=== PATIENT | female | born 1975 | race Caucasian/White ===

== ENCOUNTER 2021-02-13 16:19 | Inpatient (IN) ==
[2021-02-13] MEDS ORDERED: KETOROLAC TROMETHAMINE 15 MG/ML VIAL IV STA (16:52)
[2021-02-13] MEDS ORDERED: DIHYDROERGOTAMINE MESYLATE 1 MG/ML VIAL IV ONE ×2 (16:52→18:37)
[2021-02-13] MEDS ORDERED: PROMETHAZINE 12.5 MG/50.5 ML BAG IV STA (16:52)
[2021-02-13] MEDS ORDERED: diphenhydrAMINE 50 MG/ML VIAL IV STA (16:52)
[2021-02-13] MEDS ORDERED: SODIUM CHLORIDE 0.9% 1000ML 1,000 ML IV SCH (17:00)
--- NOTE | 2021-02-13 17:00 | Emergency Department Note ---
History of Present Illness General Chief complaint: Headache Stated complaint: MIGRAINE Time Seen by Provider: 02/13/21 16:41 Source: patient History of Present Illness Provider complaint: Headache Onset (ago): week(s) Location: head Pain Consistency: + constant Maximum Pain Intensity: 8 Quality: + constant Relieved By: + medication Exacerbated By: + other (Bright lights) Associated symptoms: no chest pain, no cough, no fever/chills, no nausea/vomiting and no shortness of breath This is a 45-year-old female with a longstanding history of migraine headaches presenting with a migraine headache for the past 3 weeks. The pain is on the left side of her head radiating down her face. She currently rates it an 8 out of 10 in severity. It is worse with bright lights. It did get better yesterday when I saw the patient and treated her with multiple medications. The pain came back this morning when she woke up. She did take the Toradol and Depakote that she was prescribed with minimal relief. She attempted to call neurology but was unable to get a call back. So she presents here today with continued headache. She denies any new symptoms today. She denies any fever, vomiting, cough or cold symptoms, chest pain, shortness of breath, abdominal pain, diarrhea, urinary symptoms or numbness or weakness on one side of her body. She does state that she was able to get the results of her MRI that was performed 2 days ago and it was negative per her report. Home Medications Medication Instructions Recorded Confirmed Type cholecalciferol (vitamin D3) 50 2,000 units PO DAILY 12/07/19 02/12/21 History mcg (2,000 unit) tablet famotidine 20 mg tablet 20 mg PO HS 12/12/19 02/12/21 History sertraline 50 mg tablet 75 mg PO DAILY tab 12/12/19 02/12/21 History zolpidem 10 mg tablet 10 mg PO HS tab 12/12/19 02/12/21 History erenumab-aooe 140 mg/mL 140 mg SUBCUT MONTHLY #1 ml 02/07/21 02/12/21 Rx subcutaneous auto-injector nortriptyline 25 mg capsule 25 mg PO DAILY #30 cap 02/07/21 02/12/21 Rx clonazepam 0.5 mg PO BID PRN 02/12/21 02/12/21 History ketorolac 10 mg PO Q8H PRN #10 tab 02/12/21 Rx mecobalamin (vitamin B12) 1,000 mcg PO DAILY 02/12/21 02/12/21 History pantoprazole 40 mg PO DAILY 02/12/21 02/12/21 History sumatriptan [Imitrex] 20 mg INTRANASAL Q6H PRN 02/12/21 02/12/21 History topiramate 25 mg PO HS 02/12/21 02/12/21 History valproic acid 250 mg PO UD #18 cap 02/12/21 Rx Allergies Allergy/AdvReac Type Severity Reaction Status Date / Time metoclopramide [From Reglan] AdvReac Shakiness Verified 02/07/21 08:30 prochlorperazine AdvReac Shakiness Verified 02/07/21 08:30 [From Compazine] Past Med/Surg History Medical History Migraine without aura Pseudoseizures Surgical History No history of previous surgery Family History Mother Migraine headache Grandmother (Maternal) Migraine headache Other Family history non-contributory Social History Smoking Status: Never smoker Preferred Language: Vietnamese marital status: Current Living Situation: Family current occupational status: employed Feels Safe at Home: Yes Review of Systems See HPI for pertinent positives & negatives. and A total of 10 systems reviewed and were otherwise negative Physical Exam Vital Signs Vital Signs - 24 hr 02/13/21 16:29 02/13/21 17:30 02/13/21 17:37 Temperature 36.6 C Temperature Source Oral Pulse Rate 125 H 109 H Pulse Rate from SpO2 Sensor Respiratory Rate 20 18 Respiratory Effort / Characteristics Non-Labored Spontaneous Respiratory Depth Normal Blood Pressure 112/77 105/71 Blood Pressure Mean 88 82 Pulse Oximetry 97 100 Oxygen Delivery Method Room Air Room Air Sepsis Recent Fever Within 48 Hours No Sepsis New/Unexplained Change in Mental Status N/A Sepsis Action Taken by Nursing No Action Required 02/13/21 18:00 02/13/21 18:30 02/13/21 19:00 Temperature Temperature Source Pulse Rate 98 H 90 94 H Pulse Rate from SpO2 Sensor 92 H 93 H Respiratory Rate 16 17 16 Respiratory Effort / Characteristics Respiratory Depth Blood Pressure 109/78 111/67 106/74 Blood Pressure Mean 88 81 84 Pulse Oximetry 100 99 99 Oxygen Delivery Method Sepsis Recent Fever Within 48 Hours Sepsis New/Unexplained Change in Mental Status Sepsis Action Taken by Nursing 02/13/21 19:36 Temperature Temperature Source Pulse Rate 95 H Pulse Rate from SpO2 Sensor 96 H Respiratory Rate 17 Respiratory Effort / Characteristics Respiratory Depth Blood Pressure 112/77 Blood Pressure Mean 88 Pulse Oximetry 99 Oxygen Delivery Method Sepsis Recent Fever Within 48 Hours Sepsis New/Unexplained Change in Mental Status Sepsis Action Taken by Nursing Constitutional: Vital signs reviewed. Eyes: Pupils are equal round reactive to light. Conjunctiva are noninjected. ENT: Pharynx is clear without erythema or exudate. Mucous membranes are moist. Neck supple without meningeal signs. Respiratory: Clear to auscultation bilaterally. Breath sounds are equal bilaterally. Cardiovascular: Regular rate and rhythm. No rubs or gallops. GI: Soft, nondistended and nontender. Bowel sounds are present. Musculoskeletal: No peripheral edema. Integumentary: No cyanosis. or jaundice. Neurologic: The patient is awake and alert. Cranial nerves II-XII are intact. Motor is 5 out of 5 all extremities. Sensation is intact to light touch all extremities. Normal speech. No pronator drift. No limb ataxia. Psychiatric: Anxious and tearful. Course Administered Medications Discontinued Medications Dihydroergotamine Mesylate (Dihydroergotamine Mesylate 1 Mg/Ml Vial) 0.5 mg IV NOW ONE Stop: 02/13/21 16:53 Last Admin: 02/13/21 17:33 Dose: 0.5 mg Documented by: [id number] Diphenhydramine HCl (Diphenhydramine 50 Mg/Ml Vial) 25 mg IV NOW STA Stop: 02/13/21 16:53 Last Admin: 02/13/21 17:13 Dose: 25 mg Documented by: [id number] Sodium Chloride (Nss 1000ml) 1,000 mls @ 999 mls/hr IV .Q1H1M ALEJANDRO Stop: 02/13/21 18:00 Last Infusion: 02/13/21 18:20 Dose: 0 mls/hr Documented by: [id number] Admin: 02/13/21 17:19 Dose: 999 mls/hr Documented by: [id number] Promethazine HCl (Phenergan) 12.5 mg in 50.5 mls @ 202 mls/hr IV NOW STA Stop: 02/13/21 17:06 Last Infusion: 02/13/21 17:27 Dose: 0 mls/hr Documented by: [id number] Admin: 02/13/21 17:12 Dose: 202 mls/hr Documented by: [id number] Promethazine HCl (Phenergan) 6.25 mg in 50.25 mls @ 201 mls/hr IV NOW STA Stop: 02/13/21 19:02 Last Infusion: 02/13/21 19:38 Dose: 0 mls/hr Documented by: [id number] Admin: 02/13/21 19:04 Dose: 201 mls/hr Documented by: [id number] Ketorolac Tromethamine (Ketorolac Tromethamine 15 Mg/Ml Vial) 10 mg IV NOW STA Stop: 02/13/21 16:53 Last Admin: 02/13/21 17:12 Dose: 10 mg Documented by: [id number] Medical Decision Making Differential Diagnosis Status migrainosus, migraine headache, tension headache, cluster headaches, intracranial mass Medical Records Attestation: I reviewed the patient's medical records. I did perform a limited focused review of portions of the patient's old chart on the electronic medical record. The patient was seen here by myself yesterday for status migrainosus. She had relief of her symptoms with multiple medications including normal saline, droperidol, Benadryl, Toradol, magnesium and valproic acid. Home Medications Current Medication List: was personally reviewed by me Laboratory Data Attestation: I reviewed the patient's lab results. Result diagrams: 02/13/21 16:48 02/13/21 16:48 Lab Results 02/13/21 02/13/21 02/13/21 Range/Units 16:48 16:48 16:48 WBC 7.48 (4.8-10.8) K/uL RBC 4.77 (4.2-5.4) M/uL Hgb 14.2 (12.0-16.0) g/dL Hct 41.5 (37-47) % MCV 87.0 (80-100) fL MCH 29.8 (25-34) pg MCHC 34.2 (32-36) g/dL RDW Std Deviation 44.3 (36.4-46.3) fL RDW Coeff of Jerry 13.8 (11.5-14.5) % Plt Count 243 (130-400) K/uL MPV 10.0 (7.4-10.4) fL Immature Gran % (Auto) 0.5 % Neut % (Auto) 76.8 % Lymph % (Auto) 11.2 % Sully % (Auto) 9.8 % Eos % (Auto) 1.2 % Baso % (Auto) 0.5 % Neut # (Auto) 5.74 (1.4-6.5) K/uL Lymph # (Auto) 0.84 L (1.2-3.4) K/uL Sully # (Auto) 0.73 H (0.11-0.59) K/uL Eos # (Auto) 0.09 (0-0.5) K/uL Baso # (Auto) 0.04 (0-0.2) K/uL Immature Gran # (Auto) 0.04 H (0.00-0.02) K/uL Sodium 139 (136-145) mmol/L Potassium 3.6 (3.5-5.1) mmol/L Chloride 108 H (98-107) mmol/L Carbon Dioxide 27 (21-32) mmol/L Anion Gap 4.0 (3-11) BUN 10 (7-18) mg/dl Creatinine 0.95 (0.6-1.2) mg/dl Est Cr Clr Drug Dosing 71.0 ml/min Est GFR ( Amer) 84.4 Est GFR (Non-Af Amer) 72.8 BUN/Creatinine Ratio 10.2 (10-20) Glucose 81 (70-99) mg/dl Calcium 8.9 (8.5-10.1) mg/dl C-Reactive Protein 0.32 H (0-0.29) mg/dl COVID-19 Eval Order SARS-CoV-2, RNA, NAAT (NEGATIVE) 02/13/21 02/13/21 Range/Units 18:45 18:45 WBC (4.8-10.8) K/uL RBC (4.2-5.4) M/uL Hgb (12.0-16.0) g/dL Hct (37-47) % MCV (80-100) fL MCH (25-34) pg MCHC (32-36) g/dL RDW Std Deviation (36.4-46.3) fL RDW Coeff of Jerry (11.5-14.5) % Plt Count (130-400) K/uL MPV (7.4-10.4) fL Immature Gran % (Auto) % Neut % (Auto) % Lymph % (Auto) % Sully % (Auto) % Eos % (Auto) % Baso % (Auto) % Neut # (Auto) (1.4-6.5) K/uL Lymph # (Auto) (1.2-3.4) K/uL Sully # (Auto) (0.11-0.59) K/uL Eos # (Auto) (0-0.5) K/uL Baso # (Auto) (0-0.2) K/uL Immature Gran # (Auto) (0.00-0.02) K/uL Sodium (136-145) mmol/L Potassium (3.5-5.1) mmol/L Chloride (98-107) mmol/L Carbon Dioxide (21-32) mmol/L Anion Gap (3-11) BUN (7-18) mg/dl Creatinine (0.6-1.2) mg/dl Est Cr Clr Drug Dosing ml/min Est GFR ( Amer) Est GFR (Non-Af Amer) BUN/Creatinine Ratio (10-20) Glucose (70-99) mg/dl Calcium (8.5-10.1) mg/dl C-Reactive Protein (0-0.29) mg/dl COVID-19 Eval Order Covid19 IDNow [facility] SARS-CoV-2, RNA, NAAT POSITIVE A* (NEGATIVE) Imaging Data Radiologist's Impression: SINGLE VIEW CHEST CLINICAL HISTORY: Covid. FINDINGS: An AP, portable, upright chest radiograph is obtained. No prior studies are available for comparison at the time of dictation. The cardiomediastinal silhouette is unremarkable. The lungs and pleural spaces are clear. No pneumothorax is seen. The bony thorax is grossly intact. There is mild thoracic scoliosis. IMPRESSION: No active disease in the chest. ACT 112: Negative or not required by law. Electronically signed by: Clint Main M.D. 02/13/2021 7:46 PM Dictated: 02/13/211944 Transcribed: 02/13/211944 [facility] Narrative I did evaluate the patient as noted above. This patient has a history of migraines and has had a migraine for the past 3 weeks. She was seen here by myself yesterday and felt better after she received several medications and was discharged with a prescription for Depakote and Toradol. She returns today because she felt worse this morning. She has no new symptoms and remains neurologically intact. IV access was established. I did place an order for continuous cardiac monitoring. The monitor showed normal sinus rhythm at a rate of 90 bpm. I did discuss case with Dr. Prescott of neurology. I did treat the patient with Phenergan, Benadryl, Toradol and normal saline IV. I did treat the patient with DHE 0.5 mg IV. I was present during the 2-minute infusion and no ill effects were noted. I did order and review the patient's blood work as noted in the electronic medical record. CBC is unremarkable without leukocytosis. Electrolytes are also unremarkable. I did reassess the patient an hour after infusion of the DHE. She still has a significant headache but feels very drowsy now. I did speak to Dr. Prescott again. The patient will be hospitalized for DHE protocol. I did give her another 0.5 mg of DHE preceded by Phenergan 6.25 mg IV. Screening Covid test is positive. I wonder if this is possibly a false positive. She has no symptoms consistent with COVID-19 at this time. I did order a CRP which was slightly elevated. I did order and personally reviewed the images of the patient's chest x-ray as described above. There is no evidence of acute infiltrate. I did discuss case with the hospitalist and case making machine operator. The inpatient team will order an MRV of the brain and continue her DHE protocol. Impression & Plan Status migrainosus, COVID-19 Discharge Plan Visit Data Chief Complaint: Headache Stated Complaint: MIGRAINE ED Provider: Saran Dale Discharge Problem: Status migrainosus, COVID-19 Patient Disposition: Being Evaluated by Hospitalist Forms Stand Alone Forms: My [facility] [employer] Prescriptions Prescriptions: No Action cholecalciferol (vitamin D3) 2,000 unit tablet 2,000 units PO DAILY RF: 0 sertraline 50 mg tablet 75 mg PO DAILY RF: 0 zolpidem 10 mg tablet 10 mg PO HS RF: 0 famotidine 20 mg tablet 20 mg PO HS RF: 0 Aimovig Autoinjector 140 mg/mL auto-injector 140 mg subcut MONTHLY Qty: 1 RF: 3 nortriptyline 25 mg capsule 25 mg PO DAILY Qty: 30 RF: 2 clonazepam 0.5 mg tablet 0.5 mg PO BID PRN (Reason: Unknown) RF: 0 pantoprazole 40 mg tablet,delayed release (DR/EC) 40 mg PO DAILY RF: 0 topiramate 25 mg cap,sprinkle,ER 24hr dose pack 25 mg PO HS RF: 0 sumatriptan [Imitrex] 20 mg/actuation spray,non-aerosol 20 mg INTRANASAL Q6H PRN (Reason: Migraine Headache) RF: 0 mecobalamin (vitamin B12) 1,000 mcg Tablet,Chewable 1,000 mcg PO DAILY RF: 0 ketorolac 10 mg tablet 10 mg PO Q8H PRN (Reason: pain) Qty: 10 RF: 0 valproic acid 250 mg capsule 250 mg PO UD Qty: 18 RF: 0 Referrals Referrals: Sheila Dooley CRNP [Primary Care Provider] -
[2021-02-13 17:05] LABS: Basophils # (auto) 0.04 K/uL (0-0.2); Basophils % (auto) 0.5 %; Eosinophils # (auto) 0.09 K/uL (0-0.5); Eosinophils % (auto) 1.2 %; Hematocrit (blood only) 41.5 % (37-47); Hemoglobin 14.2 g/dL (12.0-16.0); Immature Granulocytes # (auto) 0.04 K/uL (0.00-0.02); Immature Granulocytes % (auto) 0.5 %; Lymphocytes # (auto) 0.84 K/uL (1.2-3.4); Lymphocytes % (auto) 11.2 %; Mean Corpuscular Hemoglobin 29.8 pg (25-34); Mean Corpuscular Hgb Conc 34.2 g/dL (32-36); Monocytes # (auto) 0.73 K/uL (0.11-0.59); Monocytes % (auto) 9.8 %; Neutrophils # (auto) 5.74 K/uL (1.4-6.5); Neutrophils % (auto) 76.8 %; Platelet Count 243 K/uL (130-400); RDW Coefficient of Variation 13.8 % (11.5-14.5); RDW Standard Deviation 44.3 fL (36.4-46.3); Red Blood Count 4.77 M/uL (4.2-5.4); White Blood Count 7.48 K/uL (4.8-10.8)
[2021-02-13 17:28] LABS: BUN Creatinine Ratio 10.2 (10-20); Calcium 8.9 mg/dl (8.5-10.1); Est GFR (African American) 84.4; Est GFR (Non-African American) 72.8; Potassium 3.6 mmol/L (3.5-5.1)
[2021-02-13] MEDS ORDERED: PROMETHAZINE 6.25 MG/50.25 ML BAG IV STA (18:48)
[2021-02-13] MEDS ORDERED: clonazePAM 0.25 MG TAB PO PRN (19:44)
--- NOTE | 2021-02-13 19:47 | XRay Report ---
SINGLE VIEW CHEST CLINICAL HISTORY: Covid. FINDINGS: An AP, portable, upright chest radiograph is obtained. No prior studies are available for c omparison at the time of dictation. The cardiomediastinal silhouette is unremarkable. The lungs and pleural spaces are clear. No pneumothorax is seen. The bony thorax is grossly intact. There is mild t horacic scoliosis. IMPRESSION: No active disease in the chest. ACT 112: Negative or not required by law. Electronically signed by: Clint Main M.D. 02/13/2021 7:46 PM
--- NOTE | 2021-02-13 19:53 | History & Physical Report ---
Date of Service February 13, 2021 Assessment & Plan (1) Status migrainosus: 45 yo F Hx migraine headache, psychogenic non-epileptic seizures, B12 deficiency, anxiety admitted for status migrainosus for DHE protocol, and incidentally noted to have COVID 19 on admission testing. Status migrainosus: - Presenting with 3 weeks of migraine despite triptan, Depakote, steroid burst therapies. - Admitted at suggestion of Dr. Keenan for DHE protocol given intractable migraine. - MRI and MR venogram ordered to evaluate for intracranial pathology such as mass that would account for continued migraine. - Given DHE (total of 1mg IV) in ER, continue 1mg IV q8h with Phenergan 12.5 IV q8h at the same time (intolerant of Compazine and Reglan). - Zofran prn breakthrough nausea, ketorolac prn breakthrough for severe headache. - Continue home Topamax, Depakote. - Neurology consult in AM. COVID 19: - No respiratory symptoms. - No treatment intervention at this time. - Isolation precautions. Elevated FT4: - Noted on labwork on 01/30 of 9.5, with low normal TSH. - This finding most consistent with either early primary hyperthyroidism, or a secondary hyperthyroidism from pituitary cause. - No history of thyroid dysfunction, and no exogenous ingestion of levothyroxine. - MRI, insulin-like growth factor and prolactin ordered to evaluate for pituitary pathology. - Thyroid US ordered, however due to COVID 19 positive status cannot be performed until no longer isolation precautions. Will defer for now pending MRI and pituitary labwork. PNES / Anxiety: - History of, follows with Dr. Keenan. - Continue home sertraline and clonazepam. - Continue home Ambien qHS for sleep. - Patient has been urged by Neurology to resume counseling as expeditiously as possible. Vitamin B 12 deficiency: - History of, continue home supplementation. Code Status: FULL CODE FEN: Clear liquid diet and advance as tolerated given nausea from migraine; NSS at 100cc/hr DVT ppx: ad meg on demand, SCDs while in bed Dispo: Med Surg with Telemetry for cardiac monitoring given administration of QT prolonging agents and DHE (2) COVID-19: (3) Pseudoseizure: (4) Vitamin B12 deficiency: History of Present Illness Chief Complaint: intractable migraine Primary Care Provider: Sheila Dooley 45 yo F Hx migraine headache, psychogenic non-epileptic seizures, B12 deficiency, anxiety presented to ER for 3 weeks of migraine. Follows with Dr. Keenan, whom she saw on 02/06 and at that time was started on steroid burst plus Zyprexa 2.5 mg x 5 days to try to break the migraine cycle. Was seen in our ER yesterday by Dr. Vega, at that time was started on Depakote every 8 hours. Returns today for continued severe migraine despite new treatments and PRN home medications. Was recommended by Dr. Keenan to be admitted for DHE protocol as well as serial migraine cocktails. In the ER was given 1 mg DHE IV, ketorolac 10 mg IV, NSS 1L bolus, Phenergan, Benadryl. Also incidentally noted to be COVID-19 positive. On my interview patient denies chest pain, shortness of breath, diarrhea or constipation, abdominal pain, dysuria or hematuria. Endorses severe headache and has the lights off with sunglasses on. Does not report any significant weight loss or gain over the last several months. No sick contacts, fevers, chills, URI symptoms. Does endorse brittle hair and some heat/cold intolerance. History of migraine in her mother. Allergies Allergy/AdvReac Type Severity Reaction Status Date / Time metoclopramide [From Reglan] AdvReac Shakiness Verified 02/07/21 08:30 prochlorperazine AdvReac Shakiness Verified 02/07/21 08:30 [From Compazine] Home Medications Medication Instructions Recorded Confirmed Type cholecalciferol (vitamin D3) 50 2,000 units PO DAILY 12/07/19 02/13/21 History mcg (2,000 unit) tablet famotidine 20 mg tablet 20 mg PO HS 12/12/19 02/13/21 History sertraline 50 mg tablet 75 mg PO DAILY tab 12/12/19 02/13/21 History zolpidem 10 mg tablet 10 mg PO HS tab 12/12/19 02/13/21 History erenumab-aooe 140 mg/mL 140 mg SUBCUT MONTHLY #1 ml 02/07/21 02/13/21 Rx subcutaneous auto-injector nortriptyline 25 mg capsule 25 mg PO DAILY #30 cap 02/07/21 02/13/21 Rx clonazepam 0.5 mg PO BID PRN 02/12/21 02/13/21 History ketorolac 10 mg PO Q8H PRN #10 tab 02/12/21 02/13/21 Rx mecobalamin (vitamin B12) 1,000 mcg PO DAILY 02/12/21 02/13/21 History pantoprazole 40 mg PO DAILY 02/12/21 02/13/21 History sumatriptan [Imitrex] 20 mg INTRANASAL Q6H PRN 02/12/21 02/13/21 History topiramate 25 mg PO HS 02/12/21 02/13/21 History valproic acid 250 mg PO UD #18 cap 02/12/21 02/13/21 Rx Past Med/Surg History Medical History Migraine without aura Pseudoseizures Surgical History No history of previous surgery Family History Mother Migraine headache Grandmother (Maternal) Migraine headache Other Family history non-contributory Social History Smoking Status: Never smoker Hx Alcohol Use: No Hx Substance Use: No Preferred Language: Turkmen Communication Ability: [employer] Required: No Beliefs That Will Affect Care: None marital status: Current Living Situation: Spouse and Family current occupational status: employed Other Information That Helps Us Care for You: No Feels Safe at Home: Yes Safety Concerns: Feels Safe At This Time Assistive Devices: Glasses Review of Systems Review of Systems: All systems reviewed & are unremarkable except as noted in HPI & below Constitutional: + malaise; no fever and no chills Respiratory: no cough and no dyspnea Cardiovascular: no chest pain, no palpitations and no edema Gastrointestinal: no abdominal pain, no constipation and no diarrhea/loose stools Genitourinary: no dysuria and no hematuria Neurologic: + headache(s) Physical Exam Constitutional: WD/WN, vitals as above Eyes: PERRL, conjunctivae normal, anicteric sclerae ENMT: external ear and nose normal, oropharynx normal Neck: normal visual inspection Thyroid: normal thyroid Respiratory: normal respiratory effort, lungs clear to auscultation Cardiovascular: RRR, no murmur, no edema Gastrointestinal (Abdomen): normal bowel sounds, soft, nontender, no hepatosplenomegaly Musculoskeletal: no cyanosis or clubbing, extremities motor strength 5/5 Skin: no rashes, warm and dry Neurologic: AAOx3, normal speech. PERRLA, EOMI, no nystagmus. Bilateral UE, LE, and face without sensory or motor deficits. No pronator drift. No tremor. Psychiatric: Orientation: alert and oriented x 3 Affect: + tearful affect Results & Data Results & Data ([facility]) Vital Signs (Past 12 Hours) Vital Signs Temp Pulse Resp BP Pulse Ox 02/13/21 19:00 94 H 16 106/74 99 02/13/21 18:30 90 17 111/67 99 02/13/21 18:00 98 H 16 109/78 100 02/13/21 17:30 109 H 18 105/71 100 02/13/21 16:29 36.6 C 125 H 20 112/77 97 Code Status & VTE Plan VTE Prophylaxis Plan VTE Prophylaxis will be ordered: Yes Supervising Physician Co-Signing Physician Notes Patient seen and examined, chart reviewed, case discussed with Dr. Shaffer and I agree with her assessment and plan as above. Briefly, patient is a 45yo female presenting with status migrainosus - ongoing headache x 3 weeks. Also found to be positive for Covid-19 On exam patient is resting comfortably in dark room with sunglasses on HEENT - NC/AT, PERRL, EOMI, MMM, Neck supple Heart - +S1/S2, regular, no m/r/g Lungs - CTA Abd - +BS, soft, NT/ND Ext - No edema Neuro - AA&Ox4, speech clear, no facial droop, sensation and MS intact, neck supple Labs and images reviewed Assessment/Plan -DHE protocol with infusion q 8 hours. Will give Phenergan rather than Reglan as she is unable to tolerate Reglan -Continue Topamax, Depakote, Nortriptyline -Patient just completed a course of steroids -Neuro consultation appreciated -Covid- 19 - patient's son with fever/fatigue beginning two days ago. Patient denies CP/SOB/cough/loss of taste or smell. Oxygenation is acceptable 97% on room air. CXR unremarkable Continue to monitor Lovenox BID Resident Activity Tracking Resident Involvement: Resident Care Provided Care Provided: Adult Hospital Medicine
[2021-02-13 20:43] LABS: Alanine Aminotransferase 29 U/L (12-78); Albumin Level 3.6 gm/dl (3.4-5.0); Alkaline Phosphatase 53 U/L (45-117); Aspartate Aminotransferase 22 U/L (15-37); Bilirubin Direct < 0.1 mg/dl (0-0.2); Bilirubin,Total 0.3 mg/dl (0.2-1); Total Protein 7.8 gm/dl (6.4-8.2)
[2021-02-13 20:55] LABS: Lyme Ab IgG w/WB Rflx Negative (Negative); Lyme Ab IgM w/WB Rflx Negative (Negative)
[2021-02-13] MEDS ORDERED: GADOBUTROL 65ML VIAL IV ONE (22:17)
[2021-02-13] MEDS ORDERED: KETOROLAC TROMETHAMINE 15 MG/ML VIAL IV PRN (22:55)
[2021-02-13] MEDS: SODIUM CHLORIDE 0.9% 1000ML 1,000 ML IV SCH (23:40)
[2021-02-14] MEDS: ZOLPIDEM TARTRATE 10 MG TAB PO SCH ×2 (00:08→21:09)
[2021-02-14] MEDS: FAMOTIDINE 20 MG TAB PO SCH ×2 (00:08→21:14)
[2021-02-14] MEDS: VALPROIC ACID SOLN 250 MG/5 ML UDC PO SCH ×3 (01:06→13:27)
[2021-02-14] MEDS: TOPIRAMATE 25 MG TAB PO SCH ×2 (01:06→21:14)
--- NOTE | 2021-02-14 01:16 | Billing Data ---
Date of Service February 13, 2021 Coding Level of Care Code 99534 OBS Care - Discharge
[2021-02-14] MEDS ORDERED: DIHYDROERGOTAMINE MESYLATE 1 MG/ML VIAL IV SCH (02:30)
[2021-02-14] MEDS ORDERED: METOCLOPRAMIDE HCL INJ 5 MG/ML 2 ML VIAL IV SCH (02:30)
[2021-02-14] MEDS: PROMETHAZINE HCL 12.5 MG in SODIUM CHLORIDE 0.9% 50 ML IV SCH ×3 (02:50→17:40)
--- NOTE | 2021-02-14 07:00 | Magnetic Resonance Report ---
MRI OF THE BRAIN WITHOUT AND WITH IV CONTRAST CLINICAL HISTORY: status migrainosus COVID POSITIVE PATIENT. COMPARISON STUDY: 02/04/2019 TECHNIQUE: MRI of the brain was performed from the vertex to the skull base utilizing various T1 and T2 weighted sequences. Following the IV administration of 6 mL of Gadavist contrast, additional enhan jono images were obtained. FINDINGS: Sagittal T1, axial diffusion, proton density and T2 weighted axial, coronal FLAIR, and pre and post a xial T1-weighted images were acquired. These were supplemented with post gadolinium coronal T1 weight ed images. No intra or extra-axial mass lesions are visualized. Axial diffusion-weighted images reveal no evidence of acute or subacute infarction. There is no evidence of ventricular dilatation. Proton density T2-weighted and FLAIR images reveal a few scattered tiny foci of increased FLAIR signa l within the white matter, minimally increased when compared the prior January 2019 study. This a nonsp ecific finding which could be secondary to small vessel disease or could be a sequela of migraines. There are no abnormal flow voids. There is no evidence of pathologic enhancement. There are improving inflammatory changes within the right mastoid. IMPRESSION: 1. No acute intracranial findings 2. No evidence of acute or subacute infarction 3. No evidence of intracranial mass 4. There are a few nonspecific tiny scattered foci of increased FLAIR signal within the white matter. ACT 112: Negative or not required by law. Electronically signed by: Faisal Mcmullen M.D. 02/14/2021 6:58 AM
[2021-02-14 07:25] LABS: Prothrombin Time 10.4 Seconds (9.0-12.0)
--- NOTE | 2021-02-14 08:04 | Magnetic Resonance Report ---
MR venography head wo con CLINICAL HISTORY: status migrainosus, COVID 19 COMPARISON STUDY: MRI the brain dated 02/04/2019 FINDINGS: There is a very small left transverse sinus and left sigmoid sinus. This is likely developm ental. The study is otherwise unremarkable without evidence of acute dural venous sinus thrombosis. IMPRESSION: 1. 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 2. Otherwise unremarkable study without evidence of acute dural venous sinus thrombosis ACT 112: Negative or not required by law. Electronically signed by: Faisal Mcmullen M.D. 02/14/2021 8:03 AM
[2021-02-14] MEDS ORDERED: ENOXAPARIN INJ 40 MG/0.4 ML SYR SQ SCH (09:00)
[2021-02-14] MEDS ORDERED: KETOROLAC 30 MG/ML VIAL IV ONE (09:47)
[2021-02-14] MEDS ORDERED: DEXAMETHASONE SOD INJ 4 MG/ML VIAL IV STA ×2 (09:47→17:57)
[2021-02-14] MEDS: SODIUM CHLORIDE 0.9% 1000ML 1,000 ML IV SCH ×2 (09:52→17:40)
[2021-02-14] MEDS: SERTRALINE HCL 50 MG TABLET PO SCH (09:54)
[2021-02-14] MEDS: PANTOprazole 40 MG TAB PO SCH (09:54)
[2021-02-14] MEDS: CHOLECALCIFEROL 1,000 UNITS 25 MCG TAB PO SCH (09:56)
[2021-02-14] MEDS: CYANOCOBALAMIN 500 MCG TABLET (VITAMIN B-12) PO SCH (09:56)
--- NOTE | 2021-02-14 10:02 | Neurology Consultation ---
Date of Consultation February 14, 2021 Assessment & Plan (1) Migraine without aura, intractable, with status migrainosus: (2) Pseudoseizures: patient has a longstanding history of migraine and non migrainous headaches. She has had significant improvement in her migraines since early 2018 when initiated on Ajovy. unfortunately, she is had worse headaches over the last 3-4 months particularly in the last few weeks. She has developed status migrainosus with daily migraines of an intractable nature. She has recently tried and failed multiple medications both to abort and prevent headaches. Her neurologic examination is unremarkable with no evidence of focal neurologic signs, meningeal signs, or encephalopathy. There is no sign of infection although she is SARs Covid-19 positive. She had no symptoms of infection but does have a cough this morning. Patient has a history of pseudoseizures which have been controlled since February 2019 on sertraline and clonazepam. Her mood has been fairly stable as well until very recently as her depression anxiety is worse now because of these intractable headaches. MRI of the brain and MRV were unremarkable with no Stroke or vascular Problems Recommendations: 1. discontinue DHE. It is not helped, she has had a significant amount over the last 24 hours, and it gave her chest and arm tightness. 2. increase IV Toradol to 30 milligrams every 6-8 hours as needed 3. Consider dexamethasone 4 milligrams 1 time to break the headache cycle. 4. Avoid narcotics. 5. Consider sumatriptan 6 milligram subcu injection x1 to see if this helps break the headaches. 6. discontinue valproic acid as I do not believe it is helped her at all. 7. Consider initiation of verapamil ER 180 milligrams once daily. Monitor blood pressure and keep up fluids and she tends to run low with her blood pressure 8. consider 50 milligrams Seroquel or 5 milligram Zyprexa daily to help headaches (And mood). 9. a tricyclic may be useful but 25 milligrams of nortriptyline did not help and the dose was too low. In addition, in the presence of sertraline, the combination could put her at risk for serotonin syndrome. Therefore I would avoid tricyclics. 10. I will consider other options depending on the above Overall, I spent a total of 120 minutes with this case including review of records, review of MRI films, direct evaluation patient at bedside, and discussion of the case with the patient at bedside, RN at bedside, and Dr. Noonan including differential diagnosis and treatment options. History of Present Illness Reason for Consultation: patient is a 45-year-old, who I was asked to see at the request of Dr. Pisano, for neurologic consultation regarding intractable status migrainosus. Requesting Physician: Dr. Pisano Attending Physician: Christopher Noonan, DO History of Present Illness patient started getting migraine headaches in her late teens, early 20s. They were intermittent overtime and by 2018 she had more headache days per month then not headache days. She had a mixture of significant migraine headaches which are left-sided, throbbing and intense with sharp pain, including nausea, photophobia, and sonophobia. She would also get tension type non migrainous headaches with face pain also. In early 2018 she was initiated on Ajovy monthly. She was given Low-dose topiramate as well (higher doses gave her side effects ). She had no help overtime with tuxl-lhf-yddkjly medications, Imitrex pills, or Fioricet. Reglan and Compazine gave her side effects. MRI of the brain in January of 2019 was unremarkable. A tilt-table study showed some mild elevated heart rate but nothing consistent with orthostasis / POTS or vasovagal syncope. patient has had a history of dizzy spells fatigue and weakness and pseudoseizures. She was having seizure-like spells but in 2012 at [facility], in their EMU, she was proven to have pseudoseizures and no epilepsy. She has not had any pseudoseizures since February of 2019 and has been on 75 milligram sertraline plus clonazepam as needed. She has been getting cognitive behavioral therapy and sees a therapist. Over the course of 2019 she did fairly well with no significant migraine headaches ( 0-1 per month) on Ajovy. By August of 2020 she started getting 2-3 migraines per month and every day pressure headaches of a non migrainous nature. In November she had 2 weeks of severe migraines continuously . Apparently she was Covid-19 negative. She has had a continuous migraine since January 21 of this year. On February 06, Dr. Schwarz initiated a Medrol Dosepak which did not help and nortriptyline 25 milligrams each evening. No adjustment in the sertraline was March. Patient tells me over the last week she has not had much in the way of flushing, sweating, or tremor, but she has had some rapid heart rate at times. nothing has helped so far , including sumatriptan nasal spray. She really had not taken valproic acid prior to February 12. Patient visited the emergency room on February 12 for her migraines. She was given IV fluids, 50 milligrams of diphenhydramine, droperidol, magnesium sulfate, 1000 milligrams of valproic acid, and 10 milligrams of ketorolac. She was also given 0.5 milligrams of DHE. she improved and was sent home. The next morning her headaches became worse again and she returned to the emergency room February 13. She arrived February 13 at 1629, with temperature 36.6, pulse 125, respiratory rate 20, blood pressure 112/77 and O2 saturation 97 percent. Neurologic examination was unremarkable. She was given 0.5 milligrams of DHE ( twice in the emergency room), diphenhydramine, IV fluids, 12.5 milligrams Phenergan, and 10 milligrams ketorolac. She did not get better and was admitted. CBC and Chem profile were largely unremarkable. Liver profile was normal as was prolactin. She was positive SARs Covid-19 . she did not have any symptoms of infection or illness prior. She says she was tested both in December in November for Covid-19 and was negative. She received 1 milligram of DHE at 7 p.m. last night and 1 milligram at 2 a.m. today. This does not help and is giving her chest and arm pressure and pain. Allergies Allergy/AdvReac Type Severity Reaction Status Date / Time metoclopramide [From Reglan] AdvReac Shakiness Verified 02/07/21 08:30 prochlorperazine AdvReac Shakiness Verified 02/07/21 08:30 [From Compazine] Home Medications Medication Instructions Recorded Confirmed Type cholecalciferol (vitamin D3) 50 2,000 units PO DAILY 12/07/19 02/13/21 History mcg (2,000 unit) tablet famotidine 20 mg tablet 20 mg PO HS 12/12/19 02/13/21 History sertraline 50 mg tablet 75 mg PO DAILY tab 12/12/19 02/13/21 History zolpidem 10 mg tablet 10 mg PO HS tab 12/12/19 02/13/21 History erenumab-aooe 140 mg/mL 140 mg SUBCUT MONTHLY #1 ml 02/07/21 02/13/21 Rx subcutaneous auto-injector nortriptyline 25 mg capsule 25 mg PO DAILY #30 cap 02/07/21 02/13/21 Rx clonazepam 0.5 mg PO BID PRN 02/12/21 02/13/21 History ketorolac 10 mg PO Q8H PRN #10 tab 02/12/21 02/13/21 Rx mecobalamin (vitamin B12) 1,000 mcg PO DAILY 02/12/21 02/13/21 History pantoprazole 40 mg PO DAILY 02/12/21 02/13/21 History sumatriptan [Imitrex] 20 mg INTRANASAL Q6H PRN 02/12/21 02/13/21 History topiramate 25 mg PO HS 02/12/21 02/13/21 History valproic acid 250 mg PO UD #18 cap 02/12/21 02/13/21 Rx Patient History Medical History (Updated 02/14/21 @ 10:15 by Jay Prescott MD) Migraine without aura Pseudoseizures Surgical History S/P appendectomy S/P cholecystectomy S/P nasal septoplasty S/P partial hysterectomy S/P removal of ovarian cyst Family History Mother Migraine headache Grandmother (Maternal) Migraine headache Other Family history non-contributory Social History Smoking Status: Never smoker Hx Alcohol Use: No Hx Substance Use: No Preferred Language: Gibraltarian Communication Ability: Effective Bid Analyst Required: No Beliefs That Will Affect Care: None marital status: Current Living Situation: Spouse and Family current occupational status: employed current occupation: works in the office of [employer] How many Children do You have Comment: 2 Other Information That Helps Us Care for You: No Feels Safe at Home: Yes Safety Concerns: Feels Safe At This Time Assistive Devices: Glasses Review of Systems Constitutional: + fatigue and + weakness; no fever Eyes: no diplopia, no eye pain and no worsening vision Ear, Nose, Mouth, Throat: no ear pain, no tinnitus, no hearing loss, no dizziness, no hoarseness and no dysphagia Respiratory: + cough; no dyspnea Cardiovascular: no chest pain, no palpitations and no lightheadedness Gastrointestinal: no abdominal pain, no nausea and no vomiting Genitourinary: no dysuria, no urinary frequency and no urinary incontinence Musculoskeletal: no back pain, no neck pain, no radicular pain, no joint pain and no myalgia Integumentary: no rash and no lesions Neurologic: + headache(s); no gait abnormality, no localized weakness, no generalized weakness, no tingling, no numbness, no tremor(s), no abnormal movements, no abnormal speech, no confusion and no memory loss Psychiatric: + depression and + anxiety; no irritability, no difficulty concentrating, no confusion and no hallucinations Endocrine: no fatigue and no flushing Hematologic / Lymphatic: no easy bleeding and no easy bruising Allergy / Immunological: no urticaria and no problem reported Exam (Neuro) Physical Exam: The patient is right-handed. The patient is awake, alert, and attentive. Speech is normal without any aphasia or dysarthria. She can name objects, repeat phrases, and has normal spontaneous speech. Mentation and thought processes are intact, with orientation to person, place and time, and normal fund of knowledge. Attention and concentration are normal. Mood is down and she is very tearful/ crying because of her headaches. Affect is appropriate. General appearance and grooming are normal. Short and long-term memory are intact. The discs are sharp with positive venous pulsations bilaterally. There are no exudates, hemorrhages, or blood vessel changes seen. Pupils are 4 mm bilaterally and reactive to light. Extraocular eye muscles are intact without nystagmus. Visual acuity and visual gomez seem normal grossly to confrontation. There are no deficits to sensation in the face in all 3 distributions of the fifth cranial nerve bilaterally. Corneal reflexes are positive bilaterally. Facial strength and symmetry was normal bilaterally. Hearing seems normal to whisper and finger rub bilaterally. Palate moves well without asymmetry. There is normal sternocleidomastoid and trapezius (shoulder shrug) strength bilaterally. Tongue is midline with good strength bilaterally. Neck has a full range of motion without discomfort. There are no cervical bruits bilaterally. There are no cranial or ocular bruits. Heart is without murmur. There is a regular rhythm and rate. Cervical, thoracic, and lumbar spine are nontender to palpation. Gait is narrow based, with good arm swing, turns, and stance. Balance is normal eyes open or closed. With outstretched arms there is no drift. There are no resting, postural, or action tremors. There is no ataxia with finger to nose testing. There is good facility in the hands. No other abnormal involuntary movements are noted. Motor strength is 5/5 diffusely in the arms bilaterally including deltoids, biceps, triceps, brachioradialis, wrist flexors and extensors, pipeline welder, and intrinsic hand muscles. Motor strength is 5/5 diffusely in the legs bilaterally including hip flexors, quadriceps, hamstrings, gastrocnemius, tibialis anterior, tibialis posterior, and Peroneii muscles. Toe extensors are normal and there is good bulk in the extensor digitorum brevis muscles bilaterally. The limbs have good tone without rigidity or spasticity. There is no atrophy noted in the muscles. Muscle bulk is normal, there is no tenderness to palpation, no myotonia to percussion, and no fasciculations seen. Sensory examination is intact to touch and pin throughout all 4 limbs diffusely. Reflexes are 2/4 in the biceps, triceps, brachioradialis, quadriceps, and Achilles tendons bilaterally. There is no clonus bilaterally. Toes are downgoing with plantar stimulation bilaterally. Peripheral pulses are present and of normal quality distally in all 4 limbs. There is no peripheral edema noted in the limbs. Results & Data ([facility]) Vital Signs (Past 12 Hours) Vital Signs Temp Pulse Pulse Pulse Resp BP BP 02/14/21 07:48 75 02/14/21 07:41 37.0 C 78 18 02/14/21 03:00 37.2 C 63 14 128/84 02/14/21 01:33 88 02/13/21 23:52 36.8 C 85 18 02/13/21 23:45 36.5 C 80 16 103/69 02/13/21 21:00 95 H 20 115/78 BP Pulse Ox 02/14/21 07:48 02/14/21 07:41 101/70 96 02/14/21 03:00 97 02/14/21 01:33 02/13/21 23:52 101/65 97 02/13/21 23:45 98 02/13/21 21:00 98 PG Care Time/CCT Total # of Minutes Spent Total Time Spent with Patient: Total time spent is greater than 50% in coordination of care (as documented) at patient's floor/unit and/or counseling patient: Coding Level of Care Code 53889 Office/OBS Consult Lvl 5 Diagnoses Migraine without aura, intractable, with status migrainosus G43.011 Pseudoseizures F44.5 Time Spent (min) 120 Comment At modifiers as needed
[2021-02-14] MEDS ORDERED: dexAMETHasone 4 MG in SYRINGE 0 ML IV ONE ×2 (10:30→18:15)
[2021-02-14] MEDS ORDERED: OLANZapine 10 MG/2.1 ML SDV IM STA (15:17)
--- NOTE | 2021-02-14 15:32 | Hospitalist Progress Note ---
Date of Service February 14, 2021 Assessment & Plan (1) Migraine without aura, intractable, with status migrainosus: Follows outpatient with Dr. Lesia Keenan Was initially place on DHE . Received 3 mg within 12 hours with no effect Increased Torodol to 30mg IV q6h Discontinued Valproic acid Gave pone dose of Dexamethasone 4mg IV Gave one dose of Zyprexa 2.5 mg PO Advance diet MRI and venography of brain with no acute findings Appreciate neurology consult and recommendations. (2) COVID-19: Tested positive on admission Asymptomatic Given 1 dose of dexamethasone 4 mg IV for headache No other treatment for Covid Continue negative pressure isolation (3) Pseudoseizure: Has been followed by neurology for years Continue sertraline and clonazepam as these have been controlled well since February 2019 (4) Vitamin B12 deficiency: Continue Mecobalamin 1 g daily Outpatient management (5) Vitamin D deficiency: Continue Cholecalciferol Outpatient management (6) DVT prophylaxis: Enoxaparin 30 mg BID Increase ambulation as tolerated Admission and Anticipated Discharge Date Admission Date: February 13, 2021 Subjective Attending: Dr. Noonan Patient seen and examined. Patient states that she continues to have intractable migraine headache with nausea and vomiting. Dr. Prescott was also in with the patient obtaining history. Long discussion with Dr. Prescott about treatment options. We will make these changes today per his recommendation with exception of holding off on verapamil until we rule out other options. Patient states that her nausea is improving. She is requesting a diet. She is experiencing severe anxiety secondary to pain. She has no fever or chills. She has no cough or productive sputum. She is on isolation for COVID-19 positivity. No indication for remdesivir or convalescent plasma. No other acute complaints. Review of Systems Review of Systems: All systems reviewed & are unremarkable except as noted in Subjective Physical Exam Physical Exam: GENERAL : Acute distress. Tearful secondary to pain EYES: No icterus, gaze conjugate NOSE: No evidence of epistaxis MOUTH: No lesions or candidiasis NECK: Supple LUNGS: CTA B/L, no wheezes, rales or rhonchi HEART: Regular, rate controlled ABDOMEN: Soft, NT, ND, BS Present EXTREMITIES: No LE edema, pedal pulses intact NEURO: A&OX3 Results & Data Results & Data ([facility]) Vital Signs (Past 12 Hours) Vital Signs Temp Pulse Pulse Pulse Resp BP BP 03/18/21 12:22 37.0 C 83 16 127/82 02/14/21 07:48 75 02/14/21 07:41 37.0 C 78 18 101/70 Pulse Ox 02/14/21 12:22 97 02/14/21 07:48 02/14/21 07:41 96 Laboratory Results 02/13/21 16:48 02/13/21 16:48 Diagnostic Findings MRI OF THE BRAIN WITHOUT AND WITH IV CONTRAST CLINICAL HISTORY: status migrainosus COVID POSITIVE PATIENT. COMPARISON STUDY: 02/04/2019 TECHNIQUE: MRI of the brain was performed from the vertex to the skull base utilizing various T1 and T2 weighted sequences. Following the IV administration of 6 mL of Gadavist contrast, additional enhanced images were obtained. FINDINGS: Sagittal T1, axial diffusion, proton density and T2 weighted axial, coronal FLAIR, and pre and post axial T1-weighted images were acquired. These were supplemented with post gadolinium coronal T1 weighted images. No intra or extra-axial mass lesions are visualized. Axial diffusion-weighted images reveal no evidence of acute or subacute infarction. There is no evidence of ventricular dilatation. Proton density T2-weighted and FLAIR images reveal a few scattered tiny foci of increased FLAIR signal within the white matter, minimally increased when compared the prior January 2019 study. This a nonspecific finding which could be secondary to small vessel disease or could be a sequela of migraines. There are no abnormal flow voids. There is no evidence of pathologic enhancement. There are improving inflammatory changes within the right mastoid. IMPRESSION: 1. No acute intracranial findings 2. No evidence of acute or subacute infarction 3. No evidence of intracranial mass 4. There are a few nonspecific tiny scattered foci of increased FLAIR signal within the white matter. ACT 112: Negative or not required by law. Electronically signed by: Faisal Mcmullen M.D. 02/14/2021 6:58 AM MR venography head wo con CLINICAL HISTORY: status migrainosus, COVID 19 COMPARISON STUDY: MRI the brain dated 02/04/2019 FINDINGS: There is a very small left transverse sinus and left sigmoid sinus. This is likely developmental. The study is otherwise unremarkable without evidence of acute dural venous sinus thrombosis. IMPRESSION: 1. 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 2. Otherwise unremarkable study without evidence of acute dural venous sinus th rombosis Electronically signed by: Faisal Mcmullen M.D. 02/14/2021 8:03 AM PG Care Time/CCT Total # of Minutes Spent Total Time Spent with Patient: Total time spent is greater than 50% in coordination of care (as documented) at patient's floor/unit and/or counseling patient:60 minutes including discussion with patient and consultants Coding Level of Care Code 98560 Subseq Hosp Care Lvl 3 Diagnoses Migraine without aura, intractable, with status migrainosus G43.011 COVID-19 U07.1 Pseudoseizure F44.5 Vitamin B12 deficiency E53.8 Vitamin D deficiency E55.9 DVT prophylaxis Z29.9 Time Spent (min) 60
[2021-02-14] MEDS: KETOROLAC 30 MG/ML VIAL IV PRN (17:47)
[2021-02-14] MEDS ORDERED: NORTRIPTYLINE HCL 25 MG CAP PO SCH (21:00)
[2021-02-14] MEDS: ENOXAPARIN INJ 30 MG/0.3 ML SYR SQ SCH (21:09)
[2021-02-15] MEDS: PROMETHAZINE HCL 12.5 MG in SODIUM CHLORIDE 0.9% 50 ML IV SCH ×3 (01:39→17:36)
[2021-02-15] MEDS: SODIUM CHLORIDE 0.9% 1000ML 1,000 ML IV SCH (01:43)
--- NOTE | 2021-02-15 05:42 | Electrocardiogram Report ---
Test Reason : Blood Pressure : / mmHG Vent. Rate : 088 BPM Atrial Rate : 088 BPM P-R Int : 188 ms QRS Dur : 086 ms QT Int : 338 ms P-R-T Axes : 069 043 026 degrees QTc Int : 408 ms Normal sinus rhythm Possible Left atrial enlargement Nonspecific T wave abnormality When compared with ECG of 09-FEB-2019 15:49, Nonspecific T wave abnormality no longer evident in Anterolateral leads Confirmed by David Hernández ([id number]) on 02/15/2021 5:41:43 AM Referred By: REFERRED SELF Confirmed By:David Hernández
[2021-02-15] MEDS ORDERED: MICONAZOLE NITRATE POWDER 43 GM EXT PRN (06:40)
--- NOTE | 2021-02-15 07:36 | Electroencephalogram ---
EEG Procedure Note Date of Service February 15, 2021 Start / End Times Start Time: 05 End Time: 05 Referring Physician Clint Crouch PA-C History 45-year-old with history of periodic nonepileptic seizures with seizure-like episode February 14 in the afternoon. Home Medication List Medication Instructions Recorded Confirmed Type cholecalciferol (vitamin D3) 50 2,000 units PO DAILY 12/07/19 02/13/21 History mcg (2,000 unit) tablet famotidine 20 mg tablet 20 mg PO HS 12/12/19 02/13/21 History sertraline 50 mg tablet 75 mg PO DAILY tab 12/12/19 02/13/21 History zolpidem 10 mg tablet 10 mg PO HS tab 12/12/19 02/13/21 History erenumab-aooe 140 mg/mL 140 mg SUBCUT MONTHLY #1 ml 02/07/21 02/13/21 Rx subcutaneous auto-injector nortriptyline 25 mg capsule 25 mg PO DAILY #30 cap 02/07/21 02/13/21 Rx clonazepam 0.5 mg PO BID PRN 02/12/21 02/13/21 History ketorolac 10 mg PO Q8H PRN #10 tab 02/12/21 02/13/21 Rx mecobalamin (vitamin B12) 1,000 mcg PO DAILY 02/12/21 02/13/21 History pantoprazole 40 mg PO DAILY 02/12/21 02/13/21 History sumatriptan [Imitrex] 20 mg INTRANASAL Q6H PRN 02/12/21 02/13/21 History topiramate 25 mg PO HS 02/12/21 02/13/21 History valproic acid 250 mg PO UD #18 cap 02/12/21 02/13/21 Rx Inpatient Medication List Cyanocobalamin (Cyanocobalamin 500 Mcg Tablet (Vitamin B-12)) 1,000 mcg PO DAILY ALEJANDRO Stop: 03/16/21 08:59 Last Admin: 02/14/21 09:56 Dose: Not Given Documented by: [id number] Enoxaparin Sodium (Enoxaparin Inj 30 Mg/0.3 Ml Syr) 30 mg SQ BID ALEJANDRO Stop: 03/16/21 20:59 Last Admin: 02/14/21 21:09 Dose: 30 mg Documented by: [id number] Famotidine (Famotidine 20 Mg Tab) 20 mg PO HS ALEJANDRO Stop: 03/15/21 22:54 Last Admin: 02/14/21 21:14 Dose: 20 mg Documented by: [id number] Admin: 02/14/21 00:08 Dose: 20 mg Documented by: [id number] Sodium Chloride (Nss 1000ml) 1,000 mls @ 100 mls/hr IV .Q10H ALEJANDRO Stop: 03/15/21 19:43 Last Admin: 02/15/21 01:43 Dose: 100 mls/hr Documented by: [id number] Infusion: 02/15/21 01:43 Dose: 100 mls/hr Documented by: [id number] Admin: 02/14/21 17:40 Dose: 100 mls/hr Documented by: [id number] Infusion: 02/14/21 17:40 Dose: 100 mls/hr Documented by: [id number] Admin: 02/14/21 09:52 Dose: 100 mls/hr Documented by: [id number] Infusion: 02/14/21 09:40 Dose: 100 mls/hr Documented by: [id number] Admin: 02/13/21 23:40 Dose: 100 mls/hr Documented by: [id number] Promethazine HCl 12.5 mg/ (Sodium Chloride) 50.5 mls @ 202 mls/hr IV Q8H ALEJANDRO Stop: 03/16/21 02:29 Last Infusion: 02/15/21 02:02 Dose: 0 mls/hr Documented by: [id number] Admin: 02/15/21 01:39 Dose: 202 mls/hr Documented by: [id number] Infusion: 02/14/21 18:16 Dose: 0 mls/hr Documented by: [id number] Admin: 02/14/21 17:40 Dose: 202 mls/hr Documented by: [id number] Admin: 02/14/21 09:59 Dose: Not Given Documented by: [id number] Infusion: 02/14/21 03:13 Dose: 0 mls/hr Documented by: [id number] Admin: 02/14/21 02:50 Dose: 202 mls/hr Documented by: [id number] Ketorolac Tromethamine (Ketorolac 30 Mg/Ml Vial) 30 mg IV Q6H PRN PRN Reason: severe headache Stop: 02/18/21 22:54 Last Admin: 02/14/21 17:47 Dose: 30 mg Documented by: [id number] Pantoprazole Sodium (Pantoprazole 40 Mg Tab) 40 mg PO DAILY [facility] Stop: 03/16/21 08:59 Last Admin: 02/14/21 09:54 Dose: 40 mg Documented by: [id number] Sertraline HCl (Sertraline Hcl 50 Mg Tablet) 75 mg PO DAILY [facility] Stop: 03/16/21 08:59 Last Admin: 02/14/21 09:54 Dose: 75 mg Documented by: [id number] Topiramate (Topiramate 25 Mg Tab) 25 mg PO HS [facility] Stop: 03/16/21 00:24 Last Admin: 02/14/21 21:14 Dose: 25 mg Documented by: [id number] Admin: 02/14/21 01:06 Dose: 25 mg Documented by: [id number] Vitamin D (Cholecalciferol 1,000 Units 25 Mcg Tab) 2,000 units PO DAILY [facility] Stop: 03/16/21 08:59 Last Admin: 02/14/21 09:56 Dose: Not Given Documented by: [id number] Zolpidem Tartrate (Zolpidem Tartrate 10 Mg Tab) 10 mg PO HS [facility] Stop: 03/15/21 20:59 Last Admin: 02/14/21 21:09 Dose: 10 mg Documented by: [id number] Admin: 02/14/21 00:08 Dose: 10 mg Documented by: [id number] Discontinued Medications Dihydroergotamine Mesylate (Dihydroergotamine Mesylate 1 Mg/Ml Vial) 0.5 mg IV NOW ONE Stop: 02/13/21 16:53 Last Admin: 02/13/21 17:33 Dose: 0.5 mg Documented by: [id number] Dihydroergotamine Mesylate (Dihydroergotamine Mesylate 1 Mg/Ml Vial) 0.5 mg IV NOW ONE Stop: 02/13/21 18:38 Last Admin: 02/13/21 23:18 Dose: Not Given Documented by: [id number] Dihydroergotamine Mesylate (Dihydroergotamine Mesylate 1 Mg/Ml Vial) 1 mg IV Q8H [facility]; Protocol Stop: 03/16/21 02:29 Last Admin: 02/14/21 02:53 Dose: 1 mg Documented by: [id number] Diphenhydramine HCl (Diphenhydramine 50 Mg/Ml Vial) 25 mg IV NOW STA Stop: 02/13/21 16:53 Last Admin: 02/13/21 17:13 Dose: 25 mg Documented by: [id number] Enoxaparin Sodium (Enoxaparin Inj 40 Mg/0.4 Ml Syr) 40 mg SQ Q12H ALEJANDRO Stop: 03/16/21 08:59 Last Admin: 02/14/21 10:43 Dose: 40 mg Documented by: [id number] Gadobutrol (Gadobutrol 65ml Vial) 6 ml IV ONCE ONE Stop: 02/13/21 22:18 Last Admin: 02/13/21 22:17 Dose: 6 ml Documented by: [id number] Sodium Chloride (Nss 1000ml) 1,000 mls @ 999 mls/hr IV .Q1H1M ALEJANDRO Stop: 02/13/21 18:00 Last Infusion: 02/13/21 18:20 Dose: 0 mls/hr Documented by: [id number] Admin: 02/13/21 17:19 Dose: 999 mls/hr Documented by: [id number] Promethazine HCl (Phenergan) 12.5 mg in 50.5 mls @ 202 mls/hr IV NOW STA Stop: 02/13/21 17:06 Last Infusion: 02/13/21 17:27 Dose: 0 mls/hr Documented by: [id number] Admin: 02/13/21 17:12 Dose: 202 mls/hr Documented by: [id number] Promethazine HCl (Phenergan) 6.25 mg in 50.25 mls @ 201 mls/hr IV NOW STA Stop: 02/13/21 19:02 Last Infusion: 02/13/21 19:38 Dose: 0 mls/hr Documented by: [id number] Admin: 02/13/21 19:04 Dose: 201 mls/hr Documented by: [id number] Dexamethasone 4 mg/ Syringe 1 mls @ 1 mls/min IV 1030 ONE Stop: 02/14/21 10:31 Last Admin: 02/14/21 10:44 Dose: 1 mls/min Documented by: [id number] Dexamethasone 4 mg/ Syringe 1 mls @ 1 mls/min IV TODAY@1815 ONE Stop: 02/14/21 18:16 Last Admin: 02/14/21 18:25 Dose: 1 mls/min Documented by: [id number] Ketorolac Tromethamine (Ketorolac Tromethamine 15 Mg/Ml Vial) 10 mg IV NOW STA Stop: 02/13/21 16:53 Last Admin: 02/13/21 17:12 Dose: 10 mg Documented by: [id number] Ketorolac Tromethamine (Ketorolac Tromethamine 15 Mg/Ml Vial) 10 mg IV Q6H PRN PRN Reason: severe headache Stop: 02/18/21 22:54 Last Admin: 02/14/21 02:55 Dose: 10 mg Documented by: [id number] Ketorolac Tromethamine (Ketorolac 30 Mg/Ml Vial) 30 mg IV NOW ONE Stop: 02/14/21 09:48 Last Admin: 02/14/21 10:45 Dose: 30 mg Documented by: [id number] Miscellaneous (Topamax Spinkle~Order Awaiting Action) 1 ea N/A QS [facility] Stop: 03/16/21 00:00 Last Admin: 02/14/21 00:30 Dose: Not Given Documented by: [id number] Olanzapine (Olanzapine 10 Mg/2.1 Ml Sdv) 2.5 mg IM NOW STA Stop: 02/14/21 15:18 Last Admin: 02/14/21 17:26 Dose: Not Given Documented by: [id number] Valproic Acid (Valproic Acid Soln 250 Mg/5 Ml Udc) 250 mg PO TID [facility] Stop: 02/17/21 23:58 Last Admin: 02/14/21 13:27 Dose: 250 mg Documented by: [id number] Admin: 02/14/21 09:57 Dose: 250 mg Documented by: [id number] Admin: 02/14/21 01:06 Dose: 250 mg Documented by: [id number] Description This is a 21 electrode EEG with a single channel dedicated to limited EKG. The electrodes were placed in accordance with the International 10-20 system. Interpretation The predominant background activity consists of a very well modulated 9 Hz activity, of up to 30 mV in amplitude,seen symmetrically distributed over the posterior head regions bilaterally spreading anteriorly. This activity attenua juarez nicely with eye-opening and other alerting procedures. Photic stimulation was performed and elicited no change in the background activity and no abnormal responses were seen. Hyperventilation was not performed. A mild amount of muscle and movement artifact activity contaminated the recording, but did not hinder interpretation to any significant degree. Throughout the waking portion of the recording, no focal abnormalities, abnormal slow activity, or potentially epileptogenic discharges are seen. The patient entered the drowsy state with no further activation. In summary, this EEG was normal during wakefulness and drowsiness. No focal abnormalities, potentially epileptogenic discharges, or abnormal slow activity was seen. Clinical Correlation The abscence of potentially epileptogenic activity does not exclude a seizure disorder, since interictally, EEGs can be normal. Clinical correlation is required. [facility] EEG Procedure Codes Indication for Procedure (1) Unresponsive episode: (2) Pseudoseizures: Neurology Neurology: [id number] EEG include record awake & drowsy
[2021-02-15] MEDS ORDERED: SUMAtriptan succinate 6 MG/0.5 ML VIAL SQ ONE (08:00)
--- NOTE | 2021-02-15 08:14 | Neurology Progress Note ---
Date of Service February 15, 2021 Assessment & Plan (1) Migraine without aura, intractable, with status migrainosus: (2) Unresponsive episode: (3) Pseudoseizures: The patient has a longstanding history of migraine and non migrainous headaches. She has had significant improvement in her migraines since early 2018 when initiated on Ajovy. unfortunately, she is had worse headaches over the last 3-4 months particularly in the last few weeks. She has developed status migrainosus with daily migraines of an intractable nature. She has recently tried and failed multiple medications both to abort and prevent headaches. However, she has been given fairly small doses of medications, so it is not surprising that many them of did not work. Her neurologic examination is unremarkable with no evidence of focal neurologic signs, meningeal signs, or encephalopathy. There is no sign of infection although she is SARs Covid-19 positive. She had no symptoms of infection but did have a coughon 3-18. there is no cough today. Patient has a history of Periodic nonepileptic seizures (pseudoseizures) which have been controlled since February 2019 on sertraline and clonazepam. Her mood has been fairly stable as well until very recently as her depression and anxiety is worse now because of these intractable headaches. MRI of the brain and MRV were unremarkable with no stroke or vascular problems Recommendations: 1. Keep off DHE. It did not help, she had a significant amount over 24 hours, and it gave her chest and arm tightness. 2. Continue IV Toradol 30 milligrams every 6 hours, as needed 3. Give dexamethasone 2 milligrams X1 today 4. Avoid narcotics. 5. Trial sumatriptan 6 milligram subcu injection x1 to see if this helps - may repeat one time in next 24 hours, if needed 6. Keep off valproic acid - it did not help. 7. Consider initiation of verapamil ER 180 milligrams once daily. Monitor blood pressure and keep up fluids and she tends to run low with her blood pressure 8. Consider 50 milligrams Seroquel now and again later in the day (she tried 2.5 mg Zyprexa daily for a few days then stopped because it didnt work) 9. A tricyclic may be useful but 25 milligrams of nortriptyline did not help (and the dose was too low). However in the presence of sertraline, the combination could put her at risk for serotonin syndrome. Therefore I would avoid tricyclics. 10. Continue Phenergan 25 milligrams, Q 6 hours as needed for nausea. 11. I would consider Emgality, 2 injections initially and then 1 injection per month thereafter, and discontinue the Ajovy and Aimovig. This medication is likely not formulary and would have to be brought in for use in the hospital. Otherwise, this could be an issue and as an outpatient. 12. if sumatriptan injection is not helpful, we could consider an oral CGRP inhibitor such as Nurtec. Also Reyvow could be initiated. Overall, I spent a total of 60 minutes with this case including review of records, direct evaluation patient at bedside, and discussion of the case with the patient at bedside, RN at bedside, and Dr. Noonan including differential diagnosis and treatment options. Admission and Anticipated Discharge Date Admission Date: February 14, 2021 Subjective the patient still has a left-sided migrainous headache this morning although it may be a little less than it was yesterday. Phenergan does help (more so than other anti nausea meds). The increased dose of Toradol likely helps as well. DHE and sumatriptan nasal have not helped. Medrol dose pack did not help either. The patient is very concerned that "I will get something for my headache which will make it better and then they will immediately send me home" patient had an episode yesterday afternoon of unresponsive and shaking in general. I talked to the age who was present and she stated that she was doing sternal rub and the patient was not responding and then suddenly "woke up". The patient herself had been very anxious and upset that afternoon. She started feeling short of breath with her anxiety and had some numbness and tingling in her left upper extremity. She felt that her heart was beating faster. She was lightheaded. She seems to remember people calling her during her episode but was not able to respond. She had no postictal state afterwards and no further spells. EEG this morning was quite normal during wakefulness and drowsiness. Blood pressure is 101/68 and she is afebrile. Results & Data ([facility]) Vital Signs (Past 12 Hours) Vital Signs Temp Pulse Pulse Pulse Resp BP BP 02/15/21 07:48 36.9 C 84 20 101/68 03/19/21 03:51 36.9 C 66 18 108/61 02/15/21 02:03 67 02/14/21 23:45 36.7 C 72 18 107/63 02/14/21 20:34 83 Pulse Ox 02/15/21 07:48 97 02/15/21 03:51 95 02/15/21 02:03 02/14/21 23:45 96 02/14/21 20:34 Exam (Neuro) Physical Exam: She is awake and alert. Speech is without aphasia or dysarth [place]. Mood is down and affect is tearful. She is pleasant and cooperative otherwise with good memory. Extraocular eye muscles are intact without nystagmus and there is no facial droop. Coordination and strength seems symmetrical in the limbs and she is sitting up normally in. PG Care Time/CCT Total # of Minutes Spent Total Time Spent with Patient: Total time spent is greater than 50% in coordination of care (as documented) at patient's floor/unit and/or counseling patient: Coding Level of Care Code 71742 Subseq Hosp Care Lvl 3 Diagnoses Migraine without aura, intractable, with status migrainosus G43.011 Unresponsive episode R41.89 Pseudoseizures F44.5 Time Spent (min) 60
[2021-02-15] MEDS: CHOLECALCIFEROL 1,000 UNITS 25 MCG TAB PO SCH (08:25)
[2021-02-15] MEDS: CYANOCOBALAMIN 500 MCG TABLET (VITAMIN B-12) PO SCH (08:25)
[2021-02-15] MEDS: SERTRALINE HCL 50 MG TABLET PO SCH (08:25)
[2021-02-15] MEDS: ENOXAPARIN INJ 30 MG/0.3 ML SYR SQ SCH ×2 (08:26→21:05)
[2021-02-15] MEDS: KETOROLAC 30 MG/ML VIAL IV PRN ×3 (08:26→21:03)
[2021-02-15] MEDS: PANTOprazole 40 MG TAB PO SCH (08:26)
[2021-02-15] MEDS ORDERED: DEXAMETHASONE SOD INJ 4 MG/ML VIAL IV STA (10:09)
[2021-02-15] MEDS ORDERED: dexAMETHasone 2 MG in SYRINGE 0 ML IV ONE (10:30)
[2021-02-15] MEDS: ONDANSETRON INJ 2 MG/ML 2 ML VIAL IV PRN (10:37)
[2021-02-15] MEDS ORDERED: QUEtiapine FUMARATE 50 MG TABCR PO ONE (11:00)
[2021-02-15] MEDS: VERAPAMIL HCL 180 MG TABCR PO SCH (12:09)
--- NOTE | 2021-02-15 14:04 | Hospitalist Progress Note ---
Date of Service February 15, 2021 Assessment & Plan (1) Migraine without aura, intractable, with status migrainosus: still with headache, still spikes to 10 out of 10 at times difficult to sleep, very anxious and tearful, no vomiting attempted DHE, did not work well, stopped DHE, stopped Valproic acid continue Verapamil 180mg, Decadron 2mg IV today, Imitrex 6mg SC Seroquel 50mg BID Phenergan for nausea try to avoid narcotics if possible (2) COVID-19: first positive test was on admission she has no symptoms, no signs of pneumonia her and son have it at home, mild symptoms monitor for any hypoxia (3) Pseudoseizure: history of such, diagnosed at [facility] inpatient epilepsy [facility] had an event on 02/14, lasted several minutes EEG today is normal no need for imaging of brain given history d/w Dr. Prescott (4) Vitamin B12 deficiency: (5) Vitamin D deficiency: Continue Cholecalciferol Outpatient management (6) DVT prophylaxis: Enoxaparin 30 mg BID Increase ambulation as tolerated (7) Anxiety: high levels of anxiety, she says that every time she takes something she gets really anxious, wondering if it will work she is tearful, depressed, hopeless some times continue Sertraline, Klonopin at home doses psychiatry consulted Admission and Anticipated Discharge Date Admission Date: February 14, 2021 Subjective patient very tearful, frustrated that she still has a headache has had a headache every day since January 21, almost 25 days now some relief with Toradol, Imitrex discussed with Dr. Prescott, will start Verapamil 180mg daily, Seroquel 50mg BID, Decadron 2mg IV today could try Engality on discharge as maintenance medication she has never been to migraine clinic appreciate notes from Dr. Prescott and psychiatry she is eating okay, no chest pain, no dyspnea, no fever/chills no GI smptoms she keeps asking if she can just be sedated and sleep a while to let this wear off discussed that we need to continue trying what we are doing Review of Systems Review of Systems: All systems reviewed & are unremarkable except as noted in Subjective Neurologic: + headache(s) (ranges from 4 to 10 out of 10, constant); no seizure-like activity Psychiatric: + depression, + hopelessness and + anxiety Results & Data Results & Data ([facility]) Vital Signs (Past 12 Hours) Vital Signs Temp Pulse Pulse Pulse Resp BP BP 02/15/21 10:32 37 C 125 H 16 116/78 02/15/21 08:20 105 H 02/15/21 07:48 36.9 C 84 20 101/68 02/15/21 03:51 36.9 C 66 18 108/61 Pulse Ox 02/15/21 10:32 02/15/21 08:20 02/15/21 07:48 97 02/15/21 03:51 95 Laboratory Results Laboratory Results - last 24 hr 02/14/21 02/14/21 16:09 16:34 POC Glucose 94 Troponin I < 0.015 Medications Administered Current Inpatient Medications Acetaminophen (Acetaminophen 325 Mg Tab) 650 mg PO Q4H PRN PRN Reason: Pain or Fever Stop: 03/15/21 22:54 Clonazepam (Clonazepam 0.25 Mg Tab) 0.5 mg PO BID PRN PRN Reason: Unknown Stop: 03/15/21 19:43 Cyanocobalamin (Cyanocobalamin 500 Mcg Tablet (Vitamin B-12)) 1,000 mcg PO DAILY ALEJANDRO Stop: 03/16/21 08:59 Last Admin: 02/15/21 08:25 Dose: 1,000 mcg Documented by: Enoxaparin Sodium (Enoxaparin Inj 30 Mg/0.3 Ml Syr) 30 mg SQ BID ALEJANDRO Stop: 03/16/21 20:59 Last Admin: 02/15/21 08:26 Dose: 30 mg Documented by: Famotidine (Famotidine 20 Mg Tab) 20 mg PO HS ALEJANDRO Stop: 03/15/21 22:54 Last Admin: 02/14/21 21:14 Dose: 20 mg Documented by: Hydromorphone HCl (Hydromorphone Inj 0.5 Mg/0.5 Ml Syr) 0.5 mg IV Q12 PRN PRN Reason: Headache Stop: 02/28/21 18:25 Promethazine HCl 12.5 mg/ (Sodium Chloride) 50.5 mls @ 202 mls/hr IV Q8H ALEJANDRO Stop: 03/16/21 02:29 Last Infusion: 02/15/21 08:46 Dose: Infused Documented by: Ketorolac Tromethamine (Ketorolac 30 Mg/Ml Vial) 30 mg IV Q6H PRN PRN Reason: severe headache Stop: 02/18/21 22:54 Last Admin: 02/15/21 08:26 Dose: 30 mg Documented by: Miconazole Nitrate (Miconazole Nitrate Powder 43 Gm) 1 appln EXT PRN PRN PRN Reason: Sweating Stop: 03/17/21 06:39 Ondansetron HCl (Ondansetron Inj 2 Mg/Ml 2 Ml Vial) 4 mg IV Q6H PRN PRN Reason: Nausea Stop: 03/15/21 22:54 Last Admin: 02/15/21 10:37 Dose: 4 mg Documented by: Pantoprazole Sodium (Pantoprazole 40 Mg Tab) 40 mg PO DAILY ALEJANDRO Stop: 03/16/21 08:59 Last Admin: 02/15/21 08:26 Dose: 40 mg Documented by: Polyethylene Glycol (Polyethylene (Miralax) 17 Gm Pack) 17 gm PO DAILY PRN PRN Reason: Constipation Stop: 03/15/21 22:54 Sertraline HCl (Sertraline Hcl 50 Mg Tablet) 75 mg PO DAILY ALEJANDRO Stop: 03/16/21 08:59 Last Admin: 02/15/21 08:25 Dose: 75 mg Documented by: Topiramate (Topiramate 25 Mg Tab) 25 mg PO HS ALEJANDRO Stop: 03/16/21 00:24 Last Admin: 02/14/21 21:14 Dose: 25 mg Documented by: Verapamil HCl (Verapamil Hcl 180 Mg Tabcr) 180 mg PO QAM ALEJANDRO Stop: 03/17/21 10:59 Last Admin: 02/15/21 12:09 Dose: 180 mg Documented by: Vitamin D (Cholecalciferol 1,000 Units 25 Mcg Tab) 2,000 units PO DAILY ALEJANDRO Stop: 03/16/21 08:59 Last Admin: 02/15/21 08:25 Dose: 2,000 units Documented by: Zolpidem Tartrate (Zolpidem Tartrate 10 Mg Tab) 10 mg PO HS [facility] Stop: 03/15/21 20:59 Last Admin: 02/14/21 21:09 Dose: 10 mg Documented by: PG Care Time/CCT Total # of Minutes Spent Total Time Spent with Patient: Total time spent is greater than 50% in coordination of care (as documented) at patient's floor/unit and/or counseling patient: Coding Level of Care Code 40939 Subseq Hosp Care Lvl 3 Diagnoses Migraine without aura, intractable, with status migrainosus G43.011 COVID-19 U07.1 Pseudoseizure F44.5 Vitamin B12 deficiency E53.8 Vitamin D deficiency E55.9 DVT prophylaxis Z29.9 Anxiety F41.9
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
[2021-02-15] MEDS: HYDROmorphone INJ 0.5 MG/0.5 ML SYR IV PRN (16:01)
[2021-02-15] MEDS: QUEtiapine FUMARATE 25 MG TABLET PO SCH (21:04)
[2021-02-15] MEDS: ZOLPIDEM TARTRATE 10 MG TAB PO SCH (21:04)
[2021-02-15] MEDS: FAMOTIDINE 20 MG TAB PO SCH (21:06)
[2021-02-15] MEDS: TOPIRAMATE 25 MG TAB PO SCH (21:06)
--- NOTE | 2021-02-15 23:54 | Electrocardiogram Report ---
Test Reason : Blood Pressure : / mmHG Vent. Rate : 099 BPM Atrial Rate : 099 BPM P-R Int : 162 ms QRS Dur : 082 ms QT Int : 346 ms P-R-T Axes : 107 111 179 degrees QTc Int : 444 ms Poor data quality, interpretation may be adversely affected Suspect arm lead reversal, interpretation assumes no reversal Normal sinus rhythm Possible Right ventricular hypertrophy Lateral infarct , age undetermined T wave abnormality, consider inferior ischemia Abnormal ECG When compared with ECG of 13-FEB-2021 21:02, Limb lead reversal is now present Confirmed by David Hernández ([id number]) on 02/15/2021 11:54:41 PM Referred By: REFERRED SELF Confirmed By:David Hernández
[2021-02-16] MEDS: PROMETHAZINE HCL 12.5 MG in SODIUM CHLORIDE 0.9% 50 ML IV SCH ×3 (02:04→17:15)
[2021-02-16] MEDS: HYDROmorphone INJ 0.5 MG/0.5 ML SYR IV PRN ×2 (05:00→17:15)
[2021-02-16] MEDS: CHOLECALCIFEROL 1,000 UNITS 25 MCG TAB PO SCH (08:17)
[2021-02-16] MEDS: SERTRALINE HCL 50 MG TABLET PO SCH (08:17)
[2021-02-16] MEDS: CYANOCOBALAMIN 500 MCG TABLET (VITAMIN B-12) PO SCH (08:18)
[2021-02-16] MEDS: ENOXAPARIN INJ 30 MG/0.3 ML SYR SQ SCH ×2 (08:18→21:23)
[2021-02-16] MEDS: PANTOprazole 40 MG TAB PO SCH (08:18)
[2021-02-16] MEDS: KETOROLAC 30 MG/ML VIAL IV PRN ×3 (08:18→21:23)
[2021-02-16] MEDS: VERAPAMIL HCL 180 MG TABCR PO SCH (08:18)
[2021-02-16] MEDS: QUEtiapine FUMARATE 25 MG TABLET PO SCH ×2 (09:37→21:25)
--- NOTE | 2021-02-16 09:50 | Neurology Progress Note ---
Date of Service February 16, 2021 Assessment & Plan (1) Migraine without aura, intractable, with status migrainosus: (2) Unresponsive episode: (3) Pseudoseizures: The patient has a longstanding history of migraine and non migrainous headaches. She had significant improvement in her migraines since early 2018 when initiated on Ajovy. Unfortunately, she had worse headaches over the last 3-4 months, particularly in the last few weeks. She has developed status migrainosus with daily migraines of an intractable nature. She has recently tried and failed multiple medications both to abort and prevent headaches. However, she has been given fairly small doses of medications, so it is not surprising that many them of did not work. Her neurologic examination is unremarkable with no evidence of focal neurologic signs, meningeal signs, or encephalopathy. There is no sign of infection al though she is SARs Covid-19 positive. She had no symptoms of infection but did have a cough on 02-14. there is no cough for 48 hours Fortunately, since last evening her headaches have been doing much better. Unfortunately, in my opinion, this was with hydromorphone. We were hoping to avoid narcotics but this seems to be the only thing in our armamentarium which helped. Patient has a history of periodic nonepileptic seizures (pseudoseizures) which have been controlled since February 2019 on sertraline and clonazepam. Her mood had been fairly stable until very recently with the increased headaches. MRI of the brain and MRV were unremarkable 02-13, with no stroke or vascular problems Recommendations: 1. Medications that recently have not helped (and/or given her side effects): DHE, sumatriptan injection, steroids, valproic acid, and others prior to admission. 2. Continue IV Toradol 30 milligrams every 6 hours, as needed 3. Discontinue steroids 4. Use hydromorphone judiciously -It has been the only thing that has helped. 5. Continue verapamil ER 180 milligrams daily for headache prophylaxis. I informed the patient this will not work right away but will hopefully help in future to prevent headaches. 6. Continue generic Seroquel 50 milligrams twice a day for now. We may change this dose in future 7. A tricyclic may be useful but in the presence of sertraline, the combination could put her at risk for serotonin syndrome. Therefore I would avoid tricyclics. psychiatry recommend she stay on the clonazepam and sertraline 75 milligrams daily. 8. Continue Phenergan 25 milligrams, Q 6 hours as needed for nausea. 9. I would consider Emgality, 2 injections initially and then 1 injection per month thereafter, and discontinue the Ajovy and Aimovig. This medication is likely not formulary and would have to be brought in for use in the hospital. Otherwise, this Could be initiated as an outpatient 10. An oral CGRP inhibitor such as Nurtec or Reyvow could be considered as an outpatient Overall, I spent a total of 35 minutes with this case including review of records, discussion of the case with the patient and RN at bedside, and Dr. Noonan including differential diagnosis and treatment options. Admission and Anticipated Discharge Date Admission Date: February 14, 2021 Subjective Patient is in a much better mood this morning. Her headache has been helped considerably with hydromorphone. Toradol helps some as does Phenergan. She denies side effects to the Seroquel and/or verapamil. Last evening a combination of hydromorphone and Toradol helps her to sleep very well for the 1st time in a while. She got up to urinate at 0500 and the headache was intense again. Another shot of hydromorphone has helped her considerably. Blood pressure is 112/73. Nursing reports no new issues and no pseudoseizures over the last 24 hours. Results & Data ([facility]) Vital Signs (Past 12 Hours) Vital Signs Temp Pulse Pulse Resp BP Pulse Ox 02/16/21 07:16 36.8 C 72 16 112/73 97 02/15/21 23:01 36.5 C 65 12 92/58 L 96 Exam (Neuro) Physical Exam: Speech is normal without aphasia or dysarthria. Mood and affect seem normal inappropriate this morning. Thought processes are intact to conversation. PG Care Time/CCT Total # of Minutes Spent Total Time Spent with Patient: Total time spent is greater than 50% in coord ination of care (as documented) at patient's floor/unit and/or counseling patient: Coding Level of Care Code 10812 Subseq Hosp Care Lvl 3 Diagnoses Migraine without aura, intractable, with status migrainosus G43.011 Unresponsive episode R41.89 Pseudoseizures F44.5 Time Spent (min) 35
[2021-02-16] MEDS: ONDANSETRON INJ 2 MG/ML 2 ML VIAL IV PRN (14:42)
[2021-02-16] MEDS: ZOLPIDEM TARTRATE 10 MG TAB PO SCH (21:23)
[2021-02-16] MEDS: FAMOTIDINE 20 MG TAB PO SCH (21:24)
[2021-02-16] MEDS: TOPIRAMATE 25 MG TAB PO SCH (21:24)
--- NOTE | 2021-02-16 22:01 | Hospitalist Progress Note ---
Date of Service February 16, 2021 Assessment & Plan (1) Migraine without aura, intractable, with status migrainosus: headache is a lot better, had a dose of Dilaudid 0.5mg IV last night and then again this morning says her headache is a 4 out of 10, this is the best she has felt in a month attempted DHE, did not work well, stopped DHE, stopped Valproic acid continue Verapamil 180mg, Imitrex 6mg SC Seroquel 50mg BID Phenergan for nausea d/w Dr. Prescott, narcotics are not ideal but actually giving her relief will continue them short term since she feels so much better certainly not a usp plan (2) COVID-19: first positive test was on admission she has no symptoms, no signs of pneumonia her and son have it at home, mild symptoms monitor for any hypoxia she is losing her sense of taste and smell today (3) Pseudoseizure: history of such, diagnosed at [facility] epilepsy unit had an event on 02/14, lasted several minutes EEG is normal no need for imaging of brain given history d/w Dr. Prescott (4) Vitamin B12 deficiency: (5) Vitamin D deficiency: Continue Cholecalciferol Outpatient management (6) DVT prophylaxis: Enoxaparin 30 mg BID Increase ambulation as tolerated (7) Anxiety: high levels of anxiety, she says that every time she takes something she gets really anxious, wondering if it will work she is tearful, depressed, hopeless some times continue Sertraline, Klonopin at home doses psychiatry consulted Admission and Anticipated Discharge Date Admission Date: February 14, 2021 Subjective patient feeling a lot better today, she finally found relief with Dilaudid 0.5mg IV she was able to sleep for several hours last night she says it is the first time in a month her headache has been less than a 5 out of 10 eating a little more, able to walk in the room she does admit that her sense of taste and smell is going away with the COVID infection no fever/chills, no dyspnea, no chest pain, no GI symptoms will see how she feels tomorrow, can still provide Dilaudid q12 [address] Prescott Review of Systems Review of Systems: All systems reviewed & are unremarkable except as noted in Subjective Constitutional: no fever, no fatigue and no weakness Respiratory: no cough and no dyspnea Cardiovascular: no chest pain and no edema Gastrointestinal: no abdominal pain, no nausea, no vomiting, no constipation and no diarrhea/loose stools Neurologic: + headache(s) (much better); no seizure-like activity, no dizziness and no abnormal speech Psychiatric: + anxiety Physical Exam Constitutional: WD/WN, vitals as above Neck: trachea midline, no thyromegaly Respiratory: normal respiratory effort, lungs clear to auscultation Cardiovascular: RRR, no murmur, no edema Gastrointestinal (Abdomen): normal bowel sounds, soft, nontender, no hepatosplenomegaly Musculoskeletal: no cyanosis or clubbing, extremities motor strength 5/5 Skin: no rashes, warm and dry Neurologic: patellar DTR's 2+ bilat, sensation intact and PERRL, EOMI, accommodation nl, no face palsy, no dysarthria Psychiatric: Orientation: alert and oriented x 3 Affect: + anxious affect Lymphatic: no cervical or axillary lymphadenopathy Results & Data Results & Data ([facility]) Vital Signs (Past 12 Hours) Vital Signs Temp Pulse Pulse Resp BP Pulse Ox 02/16/21 14:41 36.5 C 96 H 96 H 16 99/62 L 97 Medications Administered Current Inpatient Medications Acetaminophen (Acetaminophen 325 Mg Tab) 650 mg PO Q4H PRN PRN Reason: Pain or Fever Stop: 03/15/21 22:54 Clonazepam (Clonazepam 0.25 Mg Tab) 0.5 mg PO BID PRN PRN Reason: Unknown Stop: 03/15/21 19:43 Cyanocobalamin (Cyanocobalamin 500 Mcg Tablet (Vitamin B-12)) 1,000 mcg PO DAILY ALEJANDRO Stop: 03/16/21 08:59 Last Admin: 02/16/21 08:18 Dose: 1,000 mcg Documented by: Enoxaparin Sodium (Enoxaparin Inj 30 Mg/0.3 Ml Syr) 30 mg SQ BID ALEJANDRO Stop: 03/16/21 20:59 Last Admin: 02/16/21 21:23 Dose: 30 mg Documented by: Famotidine (Famotidine 20 Mg Tab) 20 mg PO HS ALEJANDRO Stop: 03/15/21 22:54 Last Admin: 02/16/21 21:24 Dose: 20 mg Documented by: Hydromorphone HCl (Hydromorphone Inj 0.5 Mg/0.5 Ml Syr) 0.5 mg IV Q12 PRN PRN Reason: Headache Stop: 02/28/21 18:25 Last Admin: 02/16/21 17:15 Dose: 0.5 mg Documented by: Promethazine HCl 12.5 mg/ (Sodium Chloride) 50.5 mls @ 202 mls/hr IV Q8H ALEJANDRO Stop: 03/16/21 02:29 Last Infusion: 02/16/21 17:37 Dose: Infused Documented by: Ketorolac Tromethamine (Ketorolac 30 Mg/Ml Vial) 30 mg IV Q6H PRN PRN Reason: severe headache Stop: 02/18/21 22:54 Last Admin: 02/16/21 21:23 Dose: 30 mg Documented by: Miconazole Nitrate (Miconazole Nitrate Powder 43 Gm) 1 appln EXT PRN PRN PRN Reason: Sweating Stop: 03/17/21 06:39 Ondansetron HCl (Ondansetron Inj 2 Mg/Ml 2 Ml Vial) 4 mg IV Q6H PRN PRN Reason: Nausea Stop: 03/15/21 22:54 Last Admin: 02/16/21 14:42 Dose: 4 mg Documented by: Pantoprazole Sodium (Pantoprazole 40 Mg Tab) 40 mg PO DAILY ALEJANDRO Stop: 03/16/21 08:59 Last Admin: 02/16/21 08:18 Dose: 40 mg Documented by: Polyethylene Glycol (Polyethylene (Miralax) 17 Gm Pack) 17 gm PO DAILY PRN PRN Reason: Constipation Stop: 03/15/21 22:54 Quetiapine Fumarate (Quetiapine Fumarate 25 Mg Tablet) 50 mg PO BID ALEJANDRO Stop: 03/17/21 20:59 Last Admin: 02/16/21 21:25 Dose: 50 mg Documented by: Sertraline HCl (Sertraline Hcl 50 Mg Tablet) 75 mg PO DAILY ALEJANDRO Stop: 03/16/21 08:59 Last Admin: 02/16/21 08:17 Dose: 75 mg Documented by: Topiramate (Topiramate 25 Mg Tab) 25 mg PO HS ALEJANDRO Stop: 03/16/21 00:24 Last Admin: 02/16/21 21:24 Dose: 25 mg Documented by: Verapamil HCl (Verapamil Hcl 180 Mg Tabcr) 180 mg PO QAM ALEJANDRO Stop: 03/17/21 10:59 Last Admin: 02/16/21 08:18 Dose: 180 mg Documented by: Vitamin D (Cholecalciferol 1,000 Units 25 Mcg Tab) 2,000 units PO DAILY ALEJANDRO Stop: 03/16/21 08:59 Last Admin: 02/16/21 08:17 Dose: 2,000 units Documented by: Zolpidem Tartrate (Zolpidem Tartrate 10 Mg Tab) 10 mg PO HS ALEJANDRO Stop: 03/15/21 20:59 Last Admin: 02/16/21 21:23 Dose: 10 mg Documented by: PG Care Time/CCT Total # of Minutes Spent Total Time Spent with Patient: Total time spent is greater than 50% in coordination of care (as documented) at patient's floor/unit and/or counseling patient: Coding Level of Care Code 03528 Subseq Hosp Care Lvl 2 Diagnoses Migraine without aura, intractable, with status migrainosus G43.011 COVID-19 U07.1 Pseudoseizure F44.5 Vitamin B12 deficiency E53.8 Vitamin D deficiency E55.9 DVT prophylaxis Z29.9 Anxiety F41.9
[2021-02-17] MEDS: PROMETHAZINE HCL 12.5 MG in SODIUM CHLORIDE 0.9% 50 ML IV SCH ×3 (02:18→17:29)
[2021-02-17] MEDS: ONDANSETRON INJ 2 MG/ML 2 ML VIAL IV PRN (06:30)
[2021-02-17] MEDS: HYDROmorphone INJ 0.5 MG/0.5 ML SYR IV PRN (06:33)
[2021-02-17] MEDS: QUEtiapine FUMARATE 25 MG TABLET PO SCH ×2 (08:41→19:21)
[2021-02-17] MEDS: KETOROLAC 30 MG/ML VIAL IV PRN ×3 (08:41→22:31)
[2021-02-17] MEDS: CYANOCOBALAMIN 500 MCG TABLET (VITAMIN B-12) PO SCH (08:42)
[2021-02-17] MEDS: VERAPAMIL HCL 180 MG TABCR PO SCH (08:43)
[2021-02-17] MEDS: PANTOprazole 40 MG TAB PO SCH (08:43)
[2021-02-17] MEDS: CHOLECALCIFEROL 1,000 UNITS 25 MCG TAB PO SCH (08:44)
[2021-02-17] MEDS: SERTRALINE HCL 50 MG TABLET PO SCH (08:44)
[2021-02-17] MEDS: ENOXAPARIN INJ 30 MG/0.3 ML SYR SQ SCH ×2 (08:45→19:21)
--- NOTE | 2021-02-17 11:25 | Neurology Progress Note ---
Date of Service February 17, 2021 Assessment & Plan (1) Migraine without aura, intractable, with status migrainosus: (2) Unresponsive episode: (3) Pseudoseizures: The patient has a longstanding history of migraine and non migrainous headaches. She had significant improvement in her migraines since early 2018 when initiated on Ajovy. Unfortunately, she had worse headaches over the last 3-4 months, particularly in the last few weeks. She has developed status migrainosus with daily migraines of an intractable nature. She has recently tried and failed multiple medications both to abort and prevent headaches. However, she has been given fairly small doses of medications, so it is not surprising that many them of did not work. Her neurologic examination is unremarkable with no evidence of focal neurologic signs, meningeal signs, or encephalopathy. There is no sign of infection al though she is SARs Covid-19 positive. She had no symptoms of infection but did have a cough on 02-14. there has been no cough since. Fortunately, since the evening of 02-15 her headaches have been doing much better. Unfortunately, in my opinion, this was with hydromorphone. We were hoping to avoid narcotics but this seems to be the only thing in our armamentarium which helped. Patient has a history of periodic nonepileptic seizures (pseudoseizures) which have been controlled since February 2019 on sertraline and clonazepam. Her mood had been fairly stable until very recently with the increased headaches. She had another pseudo-seizure today with the stress of her roommate coding. She is doing fairly well currently. MRI of the brain and MRV were unremarkable 02-13, with no stroke or vascular problems Recommendations: 1. Medications that recently have not helped (and/or given her side effects): DHE, sumatriptan injection, steroids, valproic acid, and others prior to admission. 2. Continue IV Toradol 30 milligrams every 6 hours, as needed 3. Discontinue steroids 4. Use hydromorphone judiciously -It has been the only thing that has helped. 5. Continue verapamil ER 180 milligrams daily for headache prophylaxis. I informed the patient this will not work right away but will hopefully help in future to prevent headaches. 6. Continue generic Seroquel 50 milligrams twice a day for now. We may change this dose in future 7. A tricyclic may be useful but in the presence of sertraline, the combination could put her at risk for serotonin syndrome. Therefore I would avoid tricyclics. psychiatry recommend she stay on the clonazepam and sertraline 75 milligrams daily. 8. Continue Phenergan 25 milligrams, Q 6 hours as needed for nausea. 9. I would consider Emgality, 2 injections initially and then 1 injection per month thereafter, and discontinue the Ajovy and Aimovig. This medication is likely not formulary and would have to be brought in for use in the hospital. Otherwise, this Could be initiated as an outpatient 10. An oral CGRP inhibitor such as Nurtec or Reyvow could be considered as an outpatient Overall, I spent a total of 35 minutes with this case including review of records, discussion of the case with the patient and RN at bedside, and Dr. Noonan including differential diagnosis and treatment options. Admission and Anticipated Discharge Date Admission Date: February 14, 2021 Subjective was doing very well with her headaches over the last 24 hours. Unfortunately, she had a roommate who were required attention and intubation around 9 o'clock this morning and this stress the patient and she had a no other "pseudo seizure". She is calm now but very tired and "does not feel well". She does not have a headache currently. Nursing reports that the patient doing very well since I last interacted with er. Results & Data ([facility]) Vital Signs (Past 12 Hours) Vital Signs Temp Pulse Resp BP Pulse Ox 02/17/21 09:45 102 H 135/88 99 02/17/21 07:35 37 C 84 16 104/68 97 02/17/21 06:51 36.7 C 99/66 L Exam (Neuro) Physical Exam: She is awake and alert but tired and soft voiced. She follows commands but is not moving her limbs very well. Extraocular eye muscles are intact without nystagmus. She has no facial droop. She is fully oriented. PG Care Time/CCT Total # of Minutes Spent Total Time Spent with Patient: Total time spent is greater than 50% in coordination of care (as documented) at patient's floor/unit and/or counseling patient: Coding Level of Care Code 19537 Subseq Hosp Care Lvl 3 Diagnoses Migraine without aura, intractable, with status migrainosus G43.011 Unresponsive episode R41.89 Pseudoseizures F44.5 Time Spent (min) 35
[2021-02-17] MEDS ORDERED: LORazepam 2 MG/4 ML VIAL ONE (12:21)
[2021-02-17] MEDS ORDERED: ONDANSETRON INJ 2 MG/ML 2 ML VIAL IV STA (12:33)
[2021-02-17] MEDS ORDERED: LORazepam 1 MG/2 ML VIAL IV STA (12:33)
[2021-02-17] MEDS ORDERED: LORazepam 1 MG/2 ML VIAL IV PRN (12:33)
--- NOTE | 2021-02-17 13:02 | Hospitalist Progress Note ---
Date of Service February 17, 2021 Assessment & Plan (1) Anxiety: high levels of anxiety, gets herself extremely worked up she is tearful, depressed, hopeless some times continue Sertraline, Klonopin 0.5mg BID PRN at home, will make it scheduled right now panic attack today, very intense, was not a pseudoseizure hyperventilated but never hypoxic, HR went up to 150's, sobbing, retching, clutching her chest stating she had pain and palpitations Ativan 1mg IV push and she immediately calmed down, within 15 minutes she was talking, trying to eat and drink I called the psychiatric liason, asked them to see/speak with her, maybe the provider can give recommendations tomorrow difficult situation as her headache is a lot better but now she is having extreme panic episodes hopeful that today is just related to her room mate being intubated in the room, seemed to initiate her episode (2) Migraine without aura, intractable, with status migrainosus: headache is a lot better, this morning she even reported it was a 3 out of 10, this was after Dilaudid 0.5mg IV given attempted DHE, did not work well, stopped DHE, stopped Valproic acid continue Verapamil 180mg Seroquel 50mg BID Phenergan for nausea d/w Dr. 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 it is now a difficult situation because she wants the Dilaudid because she knows it gives her relief she was nauseated, did not take Verapamil or Seroquel this morning however, headache is still better, dealing more today with anxiety and panic attacks (3) COVID-19: first positive test was on admission she has no symptoms, no signs of pneumonia her and son have it at home, mild symptoms monitor for any hypoxia, no issues she is losing her sense of taste and smell, makes it more difficult for her to eat (4) Pseudoseizure: history of such, diagnosed at [place] inpatient epilepsy unit had an event on 02/14, lasted several minutes EEG was normal no need for imaging of brain given history d/w Dr. Prescott had another unresponsive episode today in the morning after her room mate needed to be intubated she was visibly traumatized by witnessing that happening even though the curtain was closed (5) Vitamin B12 deficiency: (6) Vitamin D deficiency: Continue Cholecalciferol Outpatient management (7) DVT prophylaxis: Enoxaparin 30 mg BID Increase ambulation as tolerated Admission and Anticipated Discharge Date Admission Date: February 14, 2021 Subjective patient reported that her headache was good this morning, 5 out of 10 she did get Diladudid 0.5mg IV at 630am she felt nauseated later in the morning, did not take her Verapamil, Seroquel, sertraline she could not eat breakfast she had a traumatic morning, her room mate was intubated in the room for acute respiratory failure and moved to ICU she was very shook up and tearful afterwards she ended up having an unresponsive episode and some retching then around 1215 she got herself really worked up, hyperventilating, tachycardic with rates in 150's nauseated and retching, claimed her chest hurt, heart racing gave her Ativan 1mg IV and Zofran 4mg IV, worked almost immediately to calm her down 15 minutes later she was eating some lunch very much has the appearance of panic attack, especially since she improved immediately with Ativan discussed with Dr. Prescott, will use Ativan PRN, unfortunately there is no way we can discharge her today as hoped I called her , gave him an update Review of Systems Review of Systems: All systems reviewed & are unremarkable except as noted in Subjective Constitutional: + fatigue and + weakness; no fever Respiratory: no cough and no dyspnea Cardiovascular: + chest pain (during panic attack) and + palpitations (during panic attack) Gastrointestinal: + nausea and + vomiting; no abdominal pain, no constipation and no diarrhea/loose stools Neurologic: + headache(s) (only 5 out of 10) Psychiatric: + anxiety and + panic attacks (severe, hyperventilating, tachycardic) Physical Exam Constitutional: WD/WN, vitals as above Neck: trachea midline, no thyromegaly Respiratory: normal respiratory effort, lungs clear to auscultation Cardiovascular: RRR, no murmur, no edema Gastrointestinal (Abdomen): normal bowel sounds, soft, nontender, no hepatosplenomegaly Musculoskeletal: no cyanosis or clubbing, extremities motor strength 5/5 Skin: no rashes, warm and dry Neurologic: patellar DTR's 2+ bilat, sensation intact and PERRL, EOMI, accommodation nl, no face palsy, no dysarthria Psychiatric: Orientation: alert and oriented x 3 Affect: + anxious affect, + tearful affect (sobbing at times) and + labile affect Lymphatic: no cervical or axillary lymphadenopathy Results & Data Results & Data ([facility]) Vital Signs (Past 12 Hours) Vital Signs Temp Pulse Resp BP Pulse Ox 02/17/21 12:30 37.2 C 110 H 20 96/63 L 98 02/17/21 09:45 102 H 135/88 99 02/17/21 07:35 37 C 84 16 104/68 97 02/17/21 06:51 36.7 C 99/66 L Laboratory Results Laboratory Results - last 24 hr 02/17/21 09:49 POC Glucose 95 Medications Administered Current Inpatient Medications Acetaminophen (Acetaminophen 325 Mg Tab) 650 mg PO Q4H PRN PRN Reason: Pain or Fever Stop: 03/15/21 22:54 Clonazepam (Clonazepam 0.25 Mg Tab) 0.5 mg PO BID PRN PRN Reason: Unknown Stop: 03/15/21 19:43 Cyanocobalamin (Cyanocobalamin 500 Mcg Tablet (Vitamin B-12)) 1,000 mcg PO DAILY ALEJANDRO Stop: 03/16/21 08:59 Last Admin: 02/17/21 08:42 Dose: 1,000 mcg Documented by: Enoxaparin Sodium (Enoxaparin Inj 30 Mg/0.3 Ml Syr) 30 mg SQ BID ALEJANDRO Stop: 03/16/21 20:59 Last Admin: 02/17/21 08:45 Dose: 30 mg Documented by: Famotidine (Famotidine 20 Mg Tab) 20 mg PO HS ALEJANDRO Stop: 03/15/21 22:54 Last Admin: 02/16/21 21:24 Dose: 20 mg Documented by: Hydromorphone HCl (Hydromorphone Inj 0.5 Mg/0.5 Ml Syr) 0.5 mg IV Q12 PRN PRN Reason: Headache Stop: 02/28/21 18:25 Last Admin: 02/17/21 06:33 Dose: 0.5 mg Documented by: Promethazine HCl 12.5 mg/ (Sodium Chloride) 50.5 mls @ 202 mls/hr IV Q8H ALEJANDRO Stop: 03/16/21 02:29 Last Infusion: 02/17/21 08:57 Dose: Infused Documented by: Lorazepam (Ativan) 1 mg in 2 mls @ 2 mls/min IV Q8H PRN PRN Reason: Anxiety/Agitation Stop: 03/19/21 12:32 Ketorolac Tromethamine (Ketorolac 30 Mg/Ml Vial) 30 mg IV Q6H PRN PRN Reason: severe headache Stop: 02/18/21 22:54 Last Admin: 02/17/21 08:41 Dose: 30 mg Documented by: Miconazole Nitrate (Miconazole Nitrate Powder 43 Gm) 1 appln EXT PRN PRN PRN Reason: Sweating Stop: 03/17/21 06:39 Ondansetron HCl (Ondansetron Inj 2 Mg/Ml 2 Ml Vial) 4 mg IV Q6H PRN PRN Reason: Nausea Stop: 03/15/21 22:54 Last Admin: 02/17/21 06:30 Dose: 4 mg Documented by: Pantoprazole Sodium (Pantoprazole 40 Mg Tab) 40 mg PO DAILY ALEJANDRO Stop: 03/16/21 08:59 Last Admin: 02/17/21 08:43 Dose: 40 mg Documented by: Polyethylene Glycol (Polyethylene (Miralax) 17 Gm Pack) 17 gm PO DAILY PRN PRN Reason: Constipation Stop: 03/15/21 22:54 Quetiapine Fumarate (Quetiapine Fumarate 25 Mg Tablet) 50 mg PO BID ALEJANDRO Stop: 03/17/21 20:59 Last Admin: 02/17/21 08:41 Dose: 50 mg Documented by: Sertraline HCl (Sertraline Hcl 50 Mg Tablet) 75 mg PO DAILY ALEJANDRO Stop: 03/16/21 08:59 Last Admin: 02/17/21 08:44 Dose: 75 mg Documented by: Topiramate (Topiramate 25 Mg Tab) 25 mg PO HS ALEJANDRO Stop: 03/16/21 00:24 Last Admin: 02/16/21 21:24 Dose: 25 mg Documented by: Verapamil HCl (Verapamil Hcl 180 Mg Tabcr) 180 mg PO QAM ALEJANDRO Stop: 03/17/21 10:59 Last Admin: 02/17/21 08:43 Dose: 180 mg Documented by: Vitamin D (Cholecalciferol 1,000 Units 25 Mcg Tab) 2,000 units PO DAILY ALEJANDRO Stop: 03/16/21 08:59 Last Admin: 02/17/21 08:44 Dose: 2,000 units Documented by: Zolpidem Tartrate (Zolpidem Tartrate 10 Mg Tab) 10 mg PO HS ALEJANDRO Stop: 03/15/21 20:59 Last Admin: 02/16/21 21:23 Dose: 10 mg Documented by: PG Care Time/CCT Total # of Minutes Spent Total Time Spent: 45 Total Time Spent with Patient: Total time spent is greater than 50% in coordination of care (as documented) at patient's floor/unit and/or counseling patient: Coding Level of Care Code 08018 Subseq Hosp Care Lvl 3 Diagnoses Anxiety F41.9 Migraine without aura, intractable, with status migrainosus G43.011 COVID-19 U07.1 Pseudoseizure F44.5 Vitamin B12 deficiency E53.8 Vitamin D deficiency E55.9 DVT prophylaxis Z29.9
[2021-02-17 16:11] LABS: ILGF1 Z-Score Female -0.1 SD (-2.0 - +2.0)
[2021-02-17] MEDS: ZOLPIDEM TARTRATE 10 MG TAB PO SCH (19:21)
[2021-02-17] MEDS: TOPIRAMATE 25 MG TAB PO SCH (19:22)
[2021-02-17] MEDS: FAMOTIDINE 20 MG TAB PO SCH (19:22)
[2021-02-17] MEDS: clonazePAM 0.5 MG TAB PO SCH (20:05)
[2021-02-18] MEDS: PROMETHAZINE HCL 12.5 MG in SODIUM CHLORIDE 0.9% 50 ML IV SCH ×3 (00:27→16:34)
[2021-02-18] MEDS: KETOROLAC 30 MG/ML VIAL IV PRN ×2 (04:55→10:43)
[2021-02-18 06:11] LABS: Hematocrit (blood only) 35.9 % (37-47); Hemoglobin 12.1 g/dL (12.0-16.0); Mean Corpuscular Hemoglobin 29.4 pg (25-34); Mean Corpuscular Hgb Conc 33.7 g/dL (32-36); Mean Corpuscular Volume 87.1 fL (80-100); Mean Platelet Volume 10.2 fL (7.4-10.4); Platelet Count 132 K/uL (130-400); RDW Coefficient of Variation 13.9 % (11.5-14.5); RDW Standard Deviation 44.3 fL (36.4-46.3); Red Blood Count 4.12 M/uL (4.2-5.4); White Blood Count 3.66 K/uL (4.8-10.8)
[2021-02-18 06:44] LABS: BUN Creatinine Ratio 14.1 (10-20); Calcium 8.1 mg/dl (8.5-10.1); Creatinine Clr Calc Pharmacy 92.4 ml/min; Est GFR (African American) 122.1; Est GFR (Non-African American) 105.4; Potassium 3.3 mmol/L (3.5-5.1)
[2021-02-18] MEDS ORDERED: POTASSIUM CHLORIDE CRTAB 20 MEQ TABCR PO STA (08:38)
[2021-02-18] MEDS ORDERED: VALPROIC ACID SOLN 250 MG/5 ML UDC PO SCH (09:00)
[2021-02-18] MEDS: clonazePAM 0.5 MG TAB PO SCH ×2 (09:13→21:19)
[2021-02-18] MEDS: SERTRALINE HCL 50 MG TABLET PO SCH (09:14)
[2021-02-18] MEDS: ENOXAPARIN INJ 30 MG/0.3 ML SYR SQ SCH ×2 (09:16→21:20)
[2021-02-18] MEDS: VERAPAMIL HCL 180 MG TABCR PO SCH (09:16)
[2021-02-18] MEDS: PANTOprazole 40 MG TAB PO SCH (09:16)
[2021-02-18] MEDS: CHOLECALCIFEROL 1,000 UNITS 25 MCG TAB PO SCH (09:16)
[2021-02-18] MEDS: CYANOCOBALAMIN 500 MCG TABLET (VITAMIN B-12) PO SCH (09:18)
[2021-02-18] MEDS: QUEtiapine FUMARATE 25 MG TABLET PO SCH ×2 (09:18→21:21)
[2021-02-18] MEDS: POLYETHYLENE (MIRALAX) 17 GM PACK PO PRN (10:43)
--- NOTE | 2021-02-18 14:30 | Neurology Progress Note ---
Date of Service February 18, 2021 Assessment & Plan (1) Migraine without aura, intractable, with status migrainosus: Brook Johnson is a 45 yo woman w/ PMH of B12 deficiency, vitamin D deficiency, PNES, chronic migraine with aura and episodic dizziness who p/t neurology clinic for follow up headaches and PNES. # Migraine with aura: has transitioned back into a chronic migraine pattern in the last few months with current severe exacerbation/status migrainosus for the last 3 weeks. C/b MOH with daily tylenol. She is also COVID positive and her worsening headaches recently may be predominantly from having COVID. - Preventative treatment: continue qudexy 75mg qhs. Just started aimovig this month; would continue aimoivig 70mg monthly going forward (no need to change to emgality). Continue nortriptyline 25mg qhs and can increase to 50mg nightly at this time. Would not continue verapamil as she has a long h/o hypotensive episodes/borderline hypotension. Would start depakote 500mg IV q8h tonight and transition to 750mg XR PO tomorrow. - Acute treatment: transition to PO medications including diclofenac or PO toradol/PO promethazine/PO benadryl q8h prn. No further opiates as this actually causes migraines to worsen in the long-term. - if she is unable to stay improved (headache severity <5/10) with daily preventatives and PO medications as needed, she will likely need transfer to an academic center such as [facility] which has a headache clinic that admits patients with severe migraines Thank you for this interesting consult. Plan of care discussed with primary team. Please call or text of questions. (2) COVID-19: (3) Anxiety: (4) Pseudoseizure: Admission and Anticipated Discharge Date Admission Date: February 14, 2021 Subjective NAEs overnight. Still receiving dilaudid IV q12h for headaches. Reports that she has had one good day since admitted but feeling about the same overall. Notes headaches are mild to moderate range (4-6/10 in severity). Notes that the dilaudid will take the pain way down (2-3/10) but it always comes back. Got DHE for 2 injections only but had side effects without clear improvement in headaches. Endorses frustration about still having ongoing headaches. Review of Systems Review of Systems: 10 point review of systems completed and negative except as in HPI. Results & Data ([facility]) Vital Signs (Past 12 Hours) Vital Signs Temp Pulse Pulse Resp BP Pulse Ox 02/18/21 09:20 89 103/71 02/18/21 08:09 36.7 C 90 20 100/67 96 02/18/21 04:55 36.5 C 75 16 94/62 L 97 Exam (Neuro) Physical Exam: General Exam: GEN: NAD, tired CV: RRR PULM: Nonlabored respirations on room air. Neuro Exam: MS: Awake and Alert. Speech fluent and appropriate without dysarthria or paraphasic errors. Language intact including naming, comprehension, repetition. Cognition and memory grossly intact. Attention intact. PG Care Time/CCT Total # of Minutes Spent Total Time Spent with Patient: Total time spent is greater than 50% in coordination of care (as documented) at patient's floor/unit and/or counseling patient: Coding Level of Care Code 71255 Subseq Hosp Care Lvl 3 Diagnoses Migraine without aura, intractable, with status migrainosus G43.011 COVID-19 U07.1 Anxiety F41.9 Pseudoseizure F44.5
[2021-02-18] MEDS ORDERED: HYDROmorphone INJ 0.5 MG/0.5 ML SYR IV PRN (15:08)
[2021-02-18] MEDS ORDERED: SODIUM CHLORIDE 0.9% 1000ML 250 ML IV ONE (15:09)
--- NOTE | 2021-02-18 15:52 | XRay Report ---
XR chest 1V portable HISTORY: right sided chest pain, COVID COMPARISON: Chest 02/13/2021. FINDINGS: The lungs are clear. The heart is normal in size. No pleural effusions. No pneumothorax. No rib fractures. Prior cholecystectomy. IMPRESSION: No acute process. ACT 112: Negative or not required by law. Electronically signed by: Russel Townsend M.D. 02/18/2021 3:51 PM
--- NOTE | 2021-02-18 16:02 | Electrocardiogram Report ---
Test Reason : Blood Pressure : / mmHG Vent. Rate : 116 BPM Atrial Rate : 116 BPM P-R Int : 168 ms QRS Dur : 082 ms QT Int : 338 ms P-R-T Axes : 072 095 010 degrees QTc Int : 469 ms Sinus tachycardia Possible Left atrial enlargement Rightward axis Abnormal ECG When compared with ECG of 14-FEB-2021 16:21, Criteria for Lateral infarct are no longer Present T wave inversion less evident in Lateral leads Confirmed by Jakob Bal ([id number] on 02/18/2021 4:01:29 PM Referred By: REFERRED SELF Confirmed By:Willie Bal
--- NOTE | 2021-02-18 16:21 | Electrocardiogram Report ---
Test Reason : Blood Pressure : / mmHG Vent. Rate : 089 BPM Atrial Rate : 089 BPM P-R Int : 208 ms QRS Dur : 084 ms QT Int : 374 ms P-R-T Axes : 057 053 019 degrees QTc Int : 455 ms Normal sinus rhythm Possible Left atrial enlargement Nonspecific T wave abnormality Abnormal ECG When compared with ECG of 17-FEB-2021 12:30, No significant change was found Confirmed by Jakob Bal ([id number] on 02/18/2021 4:21:26 PM Referred By: REFERRED SELF Confirmed By:Willie Bal
[2021-02-18] MEDS ORDERED: DICLOFENAC SODIUM 25 MG TABDR PO PRN (17:13)
--- NOTE | 2021-02-18 17:16 | Hospitalist Progress Note ---
Date of Service February 18, 2021 Assessment & Plan (1) Migraine without aura, intractable, with status migrainosus: She has been through multiple medications including steroids prior to admission attempted DHE, did not work well, stopped DHE, stopped Valproic acid although this was p.o. --Was then started on Verapamil 180mg, but this is causing low blood pressure and will be stopped -Continue Seroquel 50mg BID -Continue Phenergan for nausea -The only thing that has brought her relief is IV Dilaudid but this will now be stopped today as this will worsen her migraines in the long run-discussed with patient by myself as well as the neurologist --Start IV Depakote 500 mg every 8 hours today -DC IV Toradol which has been given now for 5 days and start p.o. diclofenac as needed -IV Benadryl added today as needed -Add nortriptyline as per neurology -Increase Topamax to 75 mg p.o. at bedtime -If no relief after IV Depakote, will consider transfer to [facility] [place] if she is accepted (2) Anxiety: high levels of anxiety, gets herself extremely worked up she is tearful, depressed, hopeless some times and has panic attacks here in the hospital continue Sertraline, Klonopin 0.5mg BID PRN at home, will make it scheduled while here panic attack on 02/17, very intense, was not a pseudoseizure-occurred after she had a traumatic event watching her roommate have respiratory failure and get intubated hyperventilated but never hypoxic, HR went up to 150's, sobbing, retching, clutching her chest stating she had pain and palpitations Ativan 1mg IV push and she immediately calmed down, within 15 minutes she was talking, trying to eat and drink The psychiatric liaison was contacted, asked them to see/speak with her, psychiatry saw her here a few days ago-recommended increasing sertraline 100 mg daily but patient declined at this time -Continue sertraline 75 mg daily -Seems more stable today (3) COVID-19: first positive test was on admission she has no symptoms, no signs of pneumonia on chest x-ray on admission and again today her and son have it at home, mild symptoms monitor for any hypoxia, no issues she is losing her sense of taste and smell, makes it more difficult for her to eat -Perhaps her headaches were related to her Covid which is hopeful that they will improve as her Covid results (4) Pseudoseizure: history of such, diagnosed at [facility] inpatient epilepsy unit had an event on 02/14, lasted several minutes EEG was normal no need for imaging of brain given history d/w Dr. Prescott had another unresponsive episode 02/17 in the morning after her room mate needed to be intubated she was visibly traumatized by witnessing that happening even though the curtain was closed (5) Vitamin B12 deficiency: (6) Vitamin D deficiency: Continue Cholecalciferol Outpatient management (7) Chest pain: Right-sided chest wall pain, tender to palpation, she thinks may be related to clenching up from her anxiety attack the day before Chest x-ray again is normal, ECG is stable from previous with nonspecific T wave changes I do not believe she has a PE or any cardiac related issue Can try lidocaine patch (8) Hypokalemia: Mildly low Replace with p.o. potassium (9) DVT prophylaxis: Enoxaparin 30 mg BID Increase ambulation as tolerated Dispo-continued stay Admission and Anticipated Discharge Date Admission Date: February 14, 2021 Subjective Patient continues to have significant left-sided headache and also reports that since her "incident" yesterday, she sustained a bruise to the right flores and some upper right sided chest wall pain that hurts worse with coughing and with palpation. She continued to ask for IV Dilaudid today but did have a low blood pressure overnight after she has been started with verapamil the last few days. One lower dose of Dilaudid was given today and then after discussion with neurology, Dilaudid has since been discontinued. This was discussed with the patient as well. Goal is to transition to p.o. medications except IV Depakote was added today by neurology. Discussed with patient that if she is not improving, we may consider transferring her to an inpatient headache center if they would accept her such as at [facility] in [place]. She states she would be agreeable to this if necessary. She also continues to have nausea associate with her headache but this is relieved with antiemetics. Review of Systems Review of Systems: All systems reviewed & are unremarkable except as noted in HPI & below Physical Exam Constitutional: WD/WN, vitals as above Eyes: + anicteric sclerae Neck: trachea midline, no thyromegaly Respiratory: normal respiratory effort, lungs clear to auscultation Cardiovascular: RRR, no murmur, no edema Chest (Breasts): Chest: normal inspection of chest Additional Comments: Positive tenderness palpation over right anterior chest wall at site of pain, no bruising Gastrointestinal (Abdomen): normal bowel sounds, soft, nontender, no hepatosplenomegaly Musculoskeletal: Extremities: extremities normal to inspection; no cyanosis and no clubbing Skin: no rashes, warm and dry Neurologic: moves all extremities and awake; no focal motor deficits Psychiatric: Orientation: alert and oriented x 3 Eye Contact: good eye contact Speech: normal rate/rhythm/volume of speech Affect: + anxious affect Mood: + anxious mood Thought Process: goal directed thought process Lymphatic: no lymphedema Results & Data Results & Data ([facility]) Vital Signs (Past 12 Hours) Vital Signs Temp Pulse Resp BP Pulse Ox 02/18/21 14:56 36.8 C 98 H 16 91/62 L 98 02/18/21 09:20 89 103/71 02/18/21 08:09 36.7 C 90 20 100/67 96 Laboratory Results 02/18/21 02/18/21 02/18/21 Range/Units 16:18 05:46 05:46 WBC 3.66 L (4.8-10.8) K/uL RBC 4.12 L (4.2-5.4) M/uL Hgb 12.1 (12.0-16.0) g/dL Hct 35.9 L (37-47) % MCV 87.1 (80-100) fL MCH 29.4 (25-34) pg MCHC 33.7 (32-36) g/dL RDW Std Deviation 44.3 (36.4-46.3) fL RDW Coeff of Jerry 13.9 (11.5-14.5) % Plt Count 132 (130-400) K/uL MPV 10.2 (7.4-10.4) fL Sodium 138 (136-145) mmol/L Potassium 3.3 L (3.5-5.1) mmol/L Chloride 107 (98-107) mmol/L Carbon Dioxide 27 (21-32) mmol/L Anion Gap 4.0 (3-11) BUN 10 (7-18) mg/dl Creatinine 0.70 (0.6-1.2) mg/dl Est Cr Clr Drug Dosing 92.4 ml/min Est GFR ( Amer) 122.1 Est GFR (Non-Af Amer) 105.4 BUN/Creatinine Ratio 14.1 (10-20) Glucose 78 (70-99) mg/dl POC Glucose 97 (70-99) mg/dl Calcium 8.1 L (8.5-10.1) mg/dl Diagnostic Findings Chest x-ray image personally reviewed by me and agree with the following report: XR chest 1V portable HISTORY: right sided chest pain, COVID COMPARISON: Chest 02/13/2021. FINDINGS: The lungs are clear. The heart is normal in size. No pleural e ffusions. No pneumothorax. No rib fractures. Prior cholecystectomy. IMPRESSION: No acute process. ECG Additional Comments: ECG on 02/18 at 1555 with normal sinus rhythm, possible left atrial enlargement, nonspecific T wave abnormality not changed from previous PG Care Time/CCT Total # of Minutes Spent Total Time Spent with Patient: Total time spent is greater than 50% in coordination of care (as documented) at patient's floor/unit and/or counseling patient: Coding Level of Care Code 47709 Subseq Hosp Care Lvl 3 Diagnoses Migraine without aura, intractable, with status migrainosus G43.011 Anxiety F41.9 COVID-19 U07.1 Pseudoseizure F44.5 Vitamin B12 deficiency E53.8 Vitamin D deficiency E55.9 Chest pain R07.9 Hypokalemia E87.6 DVT prophylaxis Z29.9
[2021-02-18] MEDS: VALPROATE SOD 500 MG in DEXTROSE 5% 50 ML IV SCH (19:21)
[2021-02-18] MEDS: MAGNESIUM SULFATE / D5W 1 GM/100 ML BAG IV SCH (19:25)
[2021-02-18] MEDS: LIDOCAINE 5% 1 PATCH TD SCH (21:16)
[2021-02-18] MEDS: ZOLPIDEM TARTRATE 10 MG TAB PO SCH (21:19)
[2021-02-18] MEDS: TOPIRAMATE 25 MG TAB PO SCH (21:20)
[2021-02-18] MEDS: NORTRIPTYLINE HCL 25 MG CAP PO SCH (21:20)
[2021-02-18] MEDS: FAMOTIDINE 20 MG TAB PO SCH (21:23)
[2021-02-19] MEDS: PROMETHAZINE HCL 12.5 MG in SODIUM CHLORIDE 0.9% 50 ML IV SCH ×2 (01:43→08:18)
[2021-02-19] MEDS: VALPROATE SOD 500 MG in DEXTROSE 5% 50 ML IV SCH ×2 (01:43→11:49)
[2021-02-19] MEDS: diphenhydrAMINE 50 MG/ML VIAL IV PRN ×3 (04:22→20:09)
[2021-02-19] MEDS: MAGNESIUM SULFATE / D5W 1 GM/100 ML BAG IV SCH (04:26)
[2021-02-19] MEDS: LIDOCAINE 5% 1 PATCH TD SCH (08:19)
[2021-02-19] MEDS: clonazePAM 0.5 MG TAB PO SCH ×2 (08:19→20:02)
[2021-02-19] MEDS: ENOXAPARIN INJ 30 MG/0.3 ML SYR SQ SCH ×2 (08:20→20:03)
[2021-02-19] MEDS: SERTRALINE HCL 50 MG TABLET PO SCH (08:21)
[2021-02-19] MEDS: CYANOCOBALAMIN 500 MCG TABLET (VITAMIN B-12) PO SCH (08:22)
[2021-02-19] MEDS: PANTOprazole 40 MG TAB PO SCH (08:22)
[2021-02-19] MEDS: QUEtiapine FUMARATE 25 MG TABLET PO SCH ×2 (08:22→20:08)
[2021-02-19] MEDS: CHOLECALCIFEROL 1,000 UNITS 25 MCG TAB PO SCH (08:22)
[2021-02-19] MEDS: POLYETHYLENE (MIRALAX) 17 GM PACK PO PRN (11:49)
[2021-02-19] MEDS: ONDANSETRON INJ 2 MG/ML 2 ML VIAL IV PRN (11:49)
--- NOTE | 2021-02-19 12:51 | Neurology Progress Note ---
Date of Service February 19, 2021 Assessment & Plan (1) Migraine without aura, intractable, with status migrainosus: Brook Johnson is a 45 yo woman w/ PMH of B12 deficiency, vitamin D deficiency, PNES, chronic migraine with aura and episodic dizziness who p/t neurology clinic for follow up headaches and PNES. # Migraine with aura: has transitioned back into a chronic migraine pattern in the last few months with current severe exacerbation/status migrainosus for the last 3 weeks. She is also COVID positive and her worsening headaches recently may be predominantly from having COVID. - Preventative treatment: continue qudexy 75mg qhs. Just started aimovig this m onth; would continue aimoivig 70mg monthly going forward (no need to change to emgality). Continue nortriptyline 25mg qhs. Continue depakote 500mg/benadryl IV q8h and transition to PO as below tomorrow. - Acute treatment: continue PO medications including diclofenac or PO depakote 500mg/PO promethazine/PO benadryl 50mg q8h prn. No further opiates as this actually causes migraines to worsen in the long-term. - if she is unable to stay improved (headache severity <5/10) with daily preventatives and PO medications as needed, she may need transfer to an academic center such as [place] which has a headache clinic that admits patients with severe migraines (if they will accept her given COVID+ status) Thank you for this interesting consult. Plan of care discussed with primary team. Please call or text of questions. (2) COVID-19: (3) Anxiety: (4) Pseudoseizure: Admission and Anticipated Discharge Date Admission Date: February 14, 2021 Subjective NAEs overnights. Transitioned to IV depakote cocktails with IV benadryl and PO prn medications. She reports that she feels about the same. Average severity 5/10, lowest 2/10 with iv depakote and benadryl. Will notice head pain slowly creeping back. reports that she has reported ongoing heart palpitations, lightheadedness and dizziness. Review of Systems Review of Systems: 10 point review of systems completed and negative except as in HPI. Results & Data ([facility]) Vital Signs (Past 12 Hours) Vital Signs Temp Pulse Resp BP Pulse Ox 02/19/21 08:29 36.5 C 96 H 14 108/71 98 Exam (Neuro) Physical Exam: General Exam: GEN: NAD, tired CV: RRR PULM: Nonlabored respirations on room air. Neuro Exam: MS: Awake and Alert. Speech fluent and appropriate without dysarthria or paraphasic errors. Language intact including naming, comprehension, repetition. Cognition and memory grossly intact. Attention intact. PG Care Time/CCT Total # of Minutes Spent Total Time Spent with Patient: Total time spent is greater than 50% in coordination of care (as documented) at patient's floor/unit and/or counseling patient: 40 Coding Level of Care Code 26337 Subseq Hosp Care Lvl 3 Diagnoses Migraine without aura, intractable, with status migrainosus G43.011 COVID-19 U07.1 Anxiety F41.9 Pseudoseizure F44.5
--- NOTE | 2021-02-19 17:09 | Hospitalist Progress Note ---
Date of Service February 19, 2021 Assessment & Plan (1) Migraine without aura, intractable, with status migrainosus: She has been through multiple medications including steroids prior to admission attempted DHE, did not work well, stopped DHE, stopped Valproic acid although this was p.o. when initially given --Was then started on Verapamil 180mg, but this is causing low blood pressure and was stopped -Continue Seroquel 50mg BID -Continue Phenergan for nausea but converted to p.o. today -The only thing that has brought her relief is IV Dilaudid but this has since been stopped as this will worsen her migraines in the long run-discussed with patient by myself as well as the neurologist --Was given 24 hours of IV Depakote 500 mg every 8 hours and will convert to oral solution tonight -DC IV Toradol which has been given now for 5 days and start p.o. diclofenac as needed-however, patient reports history of significant GI issues with NSAIDs in the past-discontinue NSAIDs -IV Benadryl but also added p.o. Benadryl as needed and encourage p.o. use -Continue nortriptyline 25 mg at bedtime -Continue Topamax 75 mg p.o. at bedtime -Was given 2 g of IV magnesium Overall, she is improved from previous although she remains frustrated. There is also a large psychiatric component to her ongoing issues with headaches which are exacerbating her headaches. -We will consult pain management for possible occipital nerve block If no significant improvement, will consider transfer to [facility] [place] if she is accepted given that she is Covid positive (2) Anxiety: high levels of anxiety, gets herself extremely worked up she is tearful, depressed, hopeless some times and has panic attacks here in the hospital continue Sertraline, Klonopin 0.5mg BID PRN at home, will make it scheduled while here panic attack on 02/17, very intense, was not a pseudoseizure-occurred after she had a traumatic event watching her roommate have respiratory failure and get intubated hyperventilated but never hypoxic, HR went up to 150's, sobbing, retching, clutching her chest stating she had pain and palpitations Ativan 1mg IV push and she immediately calmed down, within 15 minutes she was talking, trying to eat and drink The psychiatric liaison was contacted, asked them to see/speak with her, psychiatry saw her here a few days ago-recommended increasing sertraline 100 mg daily but patient declined at this time -Continue sertraline 75 mg daily -I discussed her care with psychiatric nurse liaison on 02/19 who will continue to reach out to patient for support and is trying to assist patient with making outpatient appointments (3) COVID-19: first positive test was on admission she has no symptoms, no signs of pneumonia on chest x-ray on admission and again today her and son have it at home, mild symptoms monitor for any hypoxia, no issues she is losing her sense of taste and smell, makes it more difficult for her to eat -Perhaps her headaches were related to her Covid which is hopeful that they will improve as her Covid results -She can come out of quarantine on 02/23 (4) Pseudoseizure: history of such, diagnosed at [facility] epilepsy unit had an event on 02/14, lasted several minutes EEG was normal no need for imaging of brain given history d/w Dr. Prescott had another unresponsive episode 02/17 in the morning after her room mate needed to be intubated she was visibly traumatized by witnessing that happening even though the curtain was closed (5) Vitamin B12 deficiency: (6) Vitamin D deficiency: Continue Cholecalciferol Outpatient management (7) Chest pain: Right-sided chest wall pain, tender to palpation, she thinks may be related to clenching up from her anxiety attack the day before Chest x-ray again is normal, ECG is stable from previous with nonspecific T wave changes I do not believe she has a PE or any cardiac related issue Now improving with lidocaine patch (8) Hypokalemia: Mildly low Replaced with p.o. potassium (9) DVT prophylaxis: Enoxaparin 30 mg BID Increase ambulation as tolerated Dispo-continued stay Admission and Anticipated Discharge Date Admission Date: February 14, 2021 Subjective Patient continues to be tearful and is upset that the Dilaudid was taken away. Feels that "no one is really hearing me." She does however report that after taking IV Benadryl and starting on IV Depakote, her headache is down to a 2/10 in severity on the left side of her head. Continues to have some photophobia but also reports this is improved. Also still with some nausea which is improved with Phenergan and Benadryl. She is worried that Depakote is going to cause her to have weight gain. She is also worried about being on NSAIDs because she has had GI upset with them in the past which caused her to lose 70 pounds. Her was on speaker phone with us. Later I discussed her case with the neurologist. The patient was also asking about possible transfer to [facility], but we decided to hold off on calling there as she is improved today. Pain on right side of chest is improved with lidocaine patch. Review of Systems Review of Systems: All systems reviewed & are unremarkable except as noted in HPI & below Still has not moved her bowels in several days. Is eating somewhat. Physical Exam Constitutional: WD/WN, vitals as above Eyes: + anicteric sclerae Neck: trachea midline, no thyromegaly Respiratory: normal respiratory effort, lungs clear to auscultation Cardiovascular: RRR, no murmur, no edema Chest (Breasts): Chest: normal inspection of chest Gastrointestinal (Abdomen): normal bowel sounds, soft, nontender, no hepatosplenomegaly Musculoskeletal: Extremities: extremities normal to inspection; no cyanosis and no clubbing Skin: no rashes, warm and dry Neurologic: moves all extremities and awake; no focal motor deficits Psychiatric: Orientation: alert and oriented x 3 Eye Contact: good eye contact Speech: normal rate/rhythm/volume of speech Affect: + anxious affect and + tearful affect Mood: + anxious mood Thought Process: goal directed thought process Lymphatic: no lymphedema Results & Data Results & Data ([facility]) Vital Signs (Past 12 Hours) Vital Signs Temp Pulse Resp BP Pulse Ox 02/19/21 08:29 36.5 C 96 H 14 108/71 98 PG Care Time/CCT Total # of Minutes Spent Total Time Spent with Patient: Total time spent is greater than 50% in coordination of care (as documented) at patient's floor/unit and/or counseling patient: Coding Level of Care Code 76831 Subseq Hosp Care Lvl 3 Diagnoses Migraine without aura, intractable, with status migrainosus G43.011 Anxiety F41.9 COVID-19 U07.1 Pseudoseizure F44.5 Vitamin B12 deficiency E53.8 Vitamin D deficiency E55.9 Chest pain R07.9 Hypokalemia E87.6 DVT prophylaxis Z29.9
[2021-02-19] MEDS: diphenhydrAMINE Capsule 25 MG CAP PO SCH ×2 (17:58→23:53)
[2021-02-19] MEDS: PROMETHAZINE HCL 25 MG TAB PO PRN (17:59)
[2021-02-19] MEDS: ACETAMINOPHEN 325 MG TAB PO PRN (17:59)
[2021-02-19] MEDS: VALPROIC ACID SOLN 500 MG/10 ML UDC PO SCH ×2 (17:59→23:53)
[2021-02-19] MEDS: ZOLPIDEM TARTRATE 10 MG TAB PO SCH (20:02)
[2021-02-19] MEDS: NORTRIPTYLINE HCL 25 MG CAP PO SCH (20:05)
[2021-02-19] MEDS: FAMOTIDINE 20 MG TAB PO SCH (20:05)
[2021-02-19] MEDS: TOPIRAMATE 25 MG TAB PO SCH (20:07)
[2021-02-20] MEDS: PANTOprazole 40 MG TAB PO SCH (08:34)
[2021-02-20] MEDS: VALPROIC ACID SOLN 500 MG/10 ML UDC PO SCH ×2 (08:34→15:21)
[2021-02-20] MEDS: CHOLECALCIFEROL 1,000 UNITS 25 MCG TAB PO SCH (08:34)
[2021-02-20] MEDS: ENOXAPARIN INJ 30 MG/0.3 ML SYR SQ SCH ×2 (08:34→21:12)
[2021-02-20] MEDS: SERTRALINE HCL 50 MG TABLET PO SCH (08:35)
[2021-02-20] MEDS: QUEtiapine FUMARATE 25 MG TABLET PO SCH ×2 (08:35→21:13)
[2021-02-20] MEDS: LIDOCAINE 5% 1 PATCH TD SCH (08:35)
[2021-02-20] MEDS: CYANOCOBALAMIN 500 MCG TABLET (VITAMIN B-12) PO SCH (08:35)
[2021-02-20] MEDS: diphenhydrAMINE Capsule 25 MG CAP PO SCH ×2 (08:36→15:21)
[2021-02-20] MEDS: clonazePAM 0.5 MG TAB PO SCH ×2 (08:37→21:10)
[2021-02-20] MEDS: PROMETHAZINE HCL 25 MG TAB PO PRN (11:33)
[2021-02-20] MEDS: ACETAMINOPHEN 325 MG TAB PO PRN (11:33)
--- NOTE | 2021-02-20 13:34 | Neurology Progress Note ---
Date of Service February 20, 2021 Assessment & Plan (1) Migraine without aura, intractable, with status migrainosus: Brook Johnson is a 45 yo woman w/ PMH of B12 deficiency, vitamin D deficiency, PNES, chronic migraine with aura and episodic dizziness who p/t neurology clinic for follow up headaches and PNES. # Migraine with aura: has transitioned back into a chronic migraine pattern in the last few months with current severe exacerbation/status migrainosus for the last 4 weeks. She is also COVID positive and her worsening headaches recently may be predominantly from having COVID. - Preventative treatment: continue qudexy 75mg qhs, aimoivig 70mg monthly (next dose due in February 2021), nortriptyline 25mg qhs. Work with PCP as discussed to change sertraline to venlafaxine as that can help with mood and migraine prevention. - Acute treatment: continue PO medications including diclofenac or PO depakote 500mg/PO promethazine/PO benadryl 50mg q8h prn. Limit diclofenac or tylenol to no more than 2-3 tabs per week to prevent rebound headaches (ok to use benadr yl/promethazine/depakote as often as needed) Thank you for this interesting consult. Plan of care discussed with primary team. Please call or text of questions. (2) COVID-19: (3) Anxiety: (4) Pseudoseizure: Admission and Anticipated Discharge Date Admission Date: February 14, 2021 Subjective NAEs overnight. Headaches stable on PO medications (average 5/10). Endorses having intermittent nausea. Discussed with her that Dr Costa has talked with [facility] and there is not much else that they could offer aside from what we are already giving her here. Recommended outpatient follow up in the headache center there is interested. Pain management is happy to see her as an outpatient after she is out of her COVID quarantine. Review of Systems Review of Systems: 10 point review of systems completed and negative except as in HPI. Results & Data ([facility]) Vital Signs (Past 12 Hours) Vital Signs Temp Pulse Resp BP Pulse Ox 02/20/21 08:43 36.9 C 94 H 16 100/67 97 Exam (Neuro) Physical Exam: General Exam: GEN: NAD, tired CV: RRR PULM: Nonlabored respirations on room air. Neuro Exam: MS: Awake and Alert. Speech fluent and appropriate without dysarthria or paraphasic errors. Language intact including naming, comprehension, repetition. Attention intact. PG Care Time/CCT Total # of Minutes Spent Total Time Spent with Patient: Total time spent is greater than 50% in coordination of care (as documented) at patient's floor/unit and/or counseling patient: Coding Level of Care Code 62635 Subseq Hosp Care Lvl 2 Diagnoses Migraine without aura, intractable, with status migrainosus G43.011 COVID-19 U07.1 Anxiety F41.9 Pseudoseizure F44.5
[2021-02-20] MEDS ORDERED: ACETAMINOPHEN 500 MG TAB PO PRN (14:10)
[2021-02-20] MEDS ORDERED: MAGNESIUM SULFATE / D5W 1 GM/100 ML BAG IV ONE (14:30)
[2021-02-20] MEDS: ONDANSETRON INJ 2 MG/ML 2 ML VIAL IV PRN (15:21)
--- NOTE | 2021-02-20 16:24 | Pain Management Consultation ---
Date of Consultation February 20, 2021 Assessment & Plan (1) Migraine without aura, intractable, with status migrainosus: Present on Admission?: Yes (2) Chronic migraine without aura: * We did discuss potential treatment options from pain service and attempt to diminish frequency and severity of her headaches. We discussed pursuing occipital nerve blocks versus consideration of a trial of Botox migraine protocol injections upon her discharge. Would not recommend pursuing the injections due to COVID-19 positivity status at this time. This was discussed with hospitalist team. The patient may follow-up in the outpatient pain clinic upon discharge to evaluate the patient for candidacy of occipital nerve blocks versus Botox migraine protocol injections. * The patient did question the potential of occipital nerve decompression. Should the patient have relief of headache with occipital nerve block for short-term only, could consider referral to Dr. Nuñez through [facility] for consideration of a several nerve decompression. * Patient will continue medical management per neurology Thank you for allowing us to precipitate in the care of Mrs. Johnson. Please contact pain service as needed. Present on Admission?: Yes History of Present Illness Reason for Consultation: Intractable migraine headache disorder/chronic migraine headache disorder Requesting Physician: Christa Costa MD Attending Physician: Christa Costa MD History of Present Illness Mrs. Johnson is a 45-year-old white female who reports a history of chronic migraine headaches who developed acute and persistent migraine approximately 1 month ago. The patient was admitted 8 days ago due to the intractable headache. Patient has past medical history of psychogenic nonepileptic seizures, B12 deficiency, anxiety and her chronic migraines. The patient has been followed by neurology over the past 2 years for treatment of her chronic migraine and had been doing relatively well until last fall when her headaches increased in frequency/severity. She was reporting headaches on approximately 15-20 days/month lasting for 24-48 hours per episode. Her headaches became daily, persistent and intractable approximately 8-10 days ago without known cause. Patient indicates that her headaches are predominantly left-sided in the periorbital and facial region with a dull and throbbing/aching characteristic. She describes slight sensitivities and sound sensitivities associated with her headaches. Patient was also found to be COVID-19 positive upon her admission. Patient was initially treated with DHE protocol and serial migraine cocktails with minimal symptomatic improvement. She is reporting a slight reduction in severity of her headaches over the past few days and was recently transitioned away from IV therapies. Pain service was requested for consideration of occipital nerve blocks in an attempt to lessen/abort her headache complaints. The patient denies prior history of injury to her head or neck. Patient has no further constitutional complaints. Visit was completed via telephone due to the patient's COVID-19 status. Pain Assessment Full Body Front + Back: 1. Left hemifacial headache 2. Left hemicranial headache Pain scale - at its best (0-10): 5 Pain scale - at its worst (0-10): 10 Allergies Allergy/AdvReac Type Severity Reaction Status Date / Time metoclopramide [From Reglan] AdvReac Mild Shakiness Verified 02/19/21 16:26 prochlorperazine AdvReac Mild Shakiness Verified 02/19/21 16:26 [From Compazine] acesulfame AdvReac Unknown Migraine Verified 02/19/21 15:37 aspartame AdvReac Unknown Migraine Verified 02/19/21 15:37 chocolate flavor AdvReac Unknown Migraine Verified 02/19/21 15:37 saccharin AdvReac Unknown Migraine Verified 02/19/21 15:37 sucralose AdvReac Unknown Migraine Verified 02/19/21 15:37 Home Medications Medication Instructions Recorded Confirmed Type cholecalciferol (vitamin D3) 50 2,000 units PO DAILY 12/07/19 02/13/21 History mcg (2,000 unit) tablet famotidine 20 mg tablet 20 mg PO HS 12/12/19 02/13/21 History sertraline 50 mg tablet 75 mg PO DAILY tab 12/12/19 02/13/21 History zolpidem 10 mg tablet 10 mg PO HS tab 12/12/19 02/13/21 History erenumab-aooe 140 mg/mL 140 mg SUBCUT MONTHLY #1 ml 02/07/21 02/13/21 Rx subcutaneous auto-injector nortriptyline 25 mg capsule 25 mg PO DAILY #30 cap 02/07/21 02/13/21 Rx clonazepam 0.5 mg PO BID PRN 02/12/21 02/13/21 History ketorolac 10 mg PO Q8H PRN #10 tab 02/12/21 02/13/21 Rx mecobalamin (vitamin B12) 1,000 mcg PO DAILY 02/12/21 02/13/21 History pantoprazole 40 mg PO DAILY 02/12/21 02/13/21 History sumatriptan [Imitrex] 20 mg INTRANASAL Q6H PRN 02/12/21 02/13/21 History topiramate 25 mg PO HS 02/12/21 02/13/21 History valproic acid 250 mg PO UD #18 cap 02/12/21 02/13/21 Rx Pain History Pain Intensity Pain scale - at its best (0-10): 5 Pain scale - at its worst (0-10): 10 Patient History Medical History Migraine without aura Pseudoseizures Surgical History S/P appendectomy S/P cholecystectomy S/P nasal septoplasty S/P partial hysterectomy S/P removal of ovarian cyst Family History Mother Migraine headache Grandmother (Maternal) Migraine headache Other Family history non-contributory Social History Smoking Status: Never smoker Hx Alcohol Use: No Hx Substance Use: No Preferred Language: Salvadorean Communication Ability: Effective Regional Marketing Manager Required: No Beliefs That Will Affect Care: Spiritism (Anabaptism, good relationship with the [employer]arsani she attends) marital status: Current Living Situation: Spouse and Family current occupational status: employed current occupation: works in the office of [employer] How many Children do You have Comment: 2 Feels Safe at Home: Yes Assistive Devices: None Physical Exam Physical Exam: Physical exam was not completed due to telephone consultation.
[2021-02-20] MEDS ORDERED: haloperidoL 1 MG TAB PO PRN (16:57)
[2021-02-20] MEDS: DOCUSATE SODIUM/SENNA 50/8.6MG TAB PO SCH (18:00)
--- NOTE | 2021-02-20 18:08 | Hospitalist Progress Note ---
Date of Service February 20, 2021 Assessment & Plan (1) Migraine without aura, intractable, with status migrainosus: Patient began with this current migraine episode that has been continuous since 01/21/2021. On 02/06, she saw neurology in the office and her Ajovy was discontinued and she was instead started on Aimovig. She also started nortriptyline 25 mg p.o. nightly and a methylprednisolone Dosepak x6 days along with Zyprexa 2.5 mg nightly x5 days. She was then admitted to the hospital on 02/13 after which she received 2 days of DHE protocol and then it did not help her and she could not tolerate side effects and that was discontinued. She was initially started on p.o. valproic acid which did not help and then was stopped She was also treated with IV Decadron in the hospital -She also has been treated with IV Phenergan, IV Benadryl, Seroquel 50 mg p.o. twice daily, IV Toradol, p.o. diclofenac, IV Dilaudid which worked well, verapamil x3 days which caused hypotension She was then started on IV Depakote on 02/18 x 24 hours and then converted to p.o. Depakote again Of all these medications, her headache remains anywhere from a 4-5/10 in severity, on the left side of the head behind the left eye and is associated with nausea, photophobia, phonophobia MRI of the brain with contrast on both 02/11 at an outside facility and on 02/13 at this facility are normal. MRV of the head shows a likely developmental very small left transverse sinus and left sigmoid sinus, but otherwise negative for dural venous thrombosis. TSH is normal and CBC and electrolytes are normal -Have since been trying to convert to p.o. medications in an effort to facilitate discharge She is now on the following: -Continue Seroquel 50mg BID -Continue Phenergan 25 mg p.o. every 8 hours as needed for nausea -Benadryl 50 mg p.o. every 8 hours scheduled and 25 mg IV as needed migraine or nausea -Depakote 3 times daily oral solution -Continue nortriptyline 25 mg at bedtime -Continue Topamax 75 mg p.o. at bedtime -Was given 2 g of IV magnesium on 02/18, will give another 1 g on 02/20 and start magnesium 400 mg p.o. once daily in the morning -Continue IV Zofran as needed -Will trial Haldol 1 mg p.o. every 8 hours as needed nausea or migraine Overall, she is improved from previous although she remains frustrated and anxious. There is also a large psychiatric component to her ongoing issues with headaches which are exacerbating her headaches. -Consult pain management for possible occipital nerve block-discussed case with pain management [facility] who reports they will facilitate outpatient scheduling for such Discussed her care with neurology at [facility] that has a specialty headache center-they do not accept inpatient transfers to the headache center but rather one must go through a rigorous outpatient evaluation process which includes a psychiatric evaluation. She is fortunately already been seen by psychiatry both here and as an outpatient. They did recommend that she be referred to their outpatient headache center and if accepted, they could admit her for inpatient IV ketamine or IV lidocaine infusions for recalcitrant migraine. Otherwise, they did not see a need to transfer from our hospital to their regular inpatient service as they would not be able to provide anything more than what we are doing for her here. -Hopeful to discharge patient to home in the next 1 to 2 days on oral medications with the expectation that her pain will not be completely gone (2) Anxiety: high levels of anxiety, gets herself extremely worked up she is tearful, depressed, hopeless some times and has panic attacks here in the hospital continue Sertraline, Klonopin 0.5mg BID PRN at home, will make it scheduled while here panic attack on 02/17, very intense, was not a pseudoseizure-occurred after she had a traumatic event watching her roommate have respiratory failure and get intubated hyperventilated but never hypoxic, HR went up to 150's, sobbing, retching, clutching her chest stating she had pain and palpitations Ativan 1mg IV push and she immediately calmed down, within 15 minutes she was talking, trying to eat and drink The psychiatric liaison was contacted, asked them to see/speak with her, psychiatry saw her here a few days ago-recommended increasing sertraline 100 mg daily but patient declined at this time -Continue sertraline 75 mg daily -I discussed her care with psychiatric nurse liaison on 02/19 who will continue to reach out to patient for support and is trying to assist patient with making outpatient appointments (3) COVID-19: first positive test was on admission she has no symptoms except loss of taste and smell, no signs of pneumonia on chest x-ray on admission and again on 02/18 her and son have it at home, mild symptoms monitor for any hypoxia, no issues -Perhaps her headaches were related to her Covid which is hopeful that they will improve as her Covid results -She can come out of quarantine on 02/23 (4) Pseudoseizure: history of such, diagnosed at [facility] inpatient epilepsy unit had an event on 02/14, lasted several minutes EEG was normal no need for imaging of brain given history d/w Dr. Prescott had another unresponsive episode 02/17 in the morning after her room mate needed to be intubated she was visibly traumatized by witnessing that happening even though the curtain was closed (5) Vitamin B12 deficiency: Continue vitamin B12 supplement (6) Vitamin D deficiency: Continue Cholecalciferol Outpatient management (7) Chest pain: Right-sided chest wall pain, tender to palpation, she thinks may be related to clenching up from her anxiety attack the day before Chest x-ray again is normal, ECG is stable from previous with nonspecific T wave changes I do not believe she has a PE or any cardiac related issue Now improving with lidocaine patch (8) Hypokalemia: Mildly low Replaced with p.o. potassium (9) Constipation: Has not moved her bowels in many days Her new medication she received on 02/06, Aimovig, has a side effect of constipation as does nortriptyline and others that she is on -Give MiraLAX daily starting now, and senna/docusate (10) DVT prophylaxis: Enoxaparin 30 mg BID Increase ambulation as tolerated, encourage her to get out of bed to the chair Dispo-continued stay, but hopeful for discharge tomorrow Admission and Anticipated Discharge Date Admission Date: February 14, 2021 Subjective Patient continues to have 5/10 in severity left-sided headache, nausea but is eating and drinking some. Still has not moved her bowels and has some left lower quadrant pain. She is still anxious and would like me to call down to [facility] to see if she can be transferred to their headache center. I spent approximately an additional 90 minutes between communicating with the physicians at [facility], and then back again with her on the phone and the patient on the phone as well as neurology here at [facility] coordinating her care. Ultimately, [facility] did not accept her to the headache center as they do not accept inpatient transfers. This must be done through an outpatient referral process. And they did not feel she was appropriate for inpatient transfer to their regular hospital service as they would not be able to do anything more for her there than what we are doing for her here of which I detailed for them on the phone. The headache center if she were excepted as an outpatient, does admit people for IV ketamine and IV lidocaine infusions. I also discussed the case with pain management who said that they would talk to her about doing occipital nerve blocks as an outpatient after resolution of her Covid. I did inform the patient of my discussion with [facility] and she is accepting of this. Goal is to try to get her on all oral medications and controlled enough to go home hopefully in the next 24 hours with plans to make urgent outpatient referral to the headache center. Review of Systems Review of Systems: All systems reviewed & are unremarkable except as noted in HPI & below Positive constipation Positive pain in the mucous membranes of her mouth Physical Exam Constitutional: WD/WN, vitals as above Eyes: + anicteric sclerae ENMT: external ear and nose normal, oropharynx normal (Except very mild erythema of buccal mucosa and tongue, no exudate) Neck: trachea midline, no thyromegaly Respiratory: normal respiratory effort, lungs clear to auscultation Cardiovascular: RRR, no murmur, no edema Chest (Breasts): Chest: normal inspection of chest Gastrointestinal (Abdomen): normal bowel sounds, soft, nontender, no hepatosplenomegaly Musculoskeletal: Extremities: extremities normal to inspection; no cyanosis and no clubbing Skin: no rashes, warm and dry Neurologic: moves all extremities and awake; no focal motor deficits Psychiatric: Orientation: alert and oriented x 3 Eye Contact: good eye contact Speech: normal rate/rhythm/volume of speech Affect: + anxious affect Mood: + anxious mood Thought Process: goal directed thought process Lymphatic: no lymphedema Results & Data Results & Data ([facility]) Vital Signs (Past 12 Hours) Vital Signs Temp Pulse Resp BP Pulse Ox 02/20/21 15:27 37.1 C 81 14 96/61 L 95 02/20/21 08:43 36.9 C 94 H 16 100/67 97 PG Care Time/CCT Total # of Minutes Spent Total Time Spent with Patient: Total time spent is greater than 50% in coordination of care (as documented) at patient's floor/unit and/or counseling patient: Prolonged Care Time Prolonged Care Time: Yes Total Prolonged Care Time: 90 Coding Level of Care Code 79142 Subseq Hosp Care Lvl 3 (25 - SIGNIFICANT, SEPARATELY IDENTIFIABLE ) Diagnoses Migraine without aura, intractable, with status migrainosus G43.011 Anxiety F41.9 COVID-19 U07.1 Pseudoseizure F44.5 Vitamin B12 deficiency E53.8 Vitamin D deficiency E55.9 Chest pain R07.9 Hypokalemia E87.6 Constipation K59.00 DVT prophylaxis Z29.9 Additional Codes Prolonged Care Time - Prolonged Care Time: Yes ([id number])
[2021-02-20] MEDS: SUCRALFATE 1 GM/10 ML UDC PO SCH (21:09)
[2021-02-20] MEDS: POLYETHYLENE (MIRALAX) 17 GM PACK PO SCH (21:10)
[2021-02-20] MEDS: ZOLPIDEM TARTRATE 10 MG TAB PO SCH (21:10)
[2021-02-20] MEDS: FAMOTIDINE 20 MG TAB PO SCH (21:13)
[2021-02-20] MEDS: TOPIRAMATE 25 MG TAB PO SCH (21:13)
[2021-02-20] MEDS: NORTRIPTYLINE HCL 25 MG CAP PO SCH (21:13)
[2021-02-21] MEDS: VALPROIC ACID SOLN 500 MG/10 ML UDC PO SCH ×2 (00:29→08:38)
[2021-02-21] MEDS: diphenhydrAMINE Capsule 25 MG CAP PO SCH ×2 (00:29→08:37)
[2021-02-21 07:45] LABS: Hematocrit (blood only) 36.7 % (37-47); Hemoglobin 12.2 g/dL (12.0-16.0); Mean Corpuscular Hemoglobin 28.8 pg (25-34); Mean Corpuscular Hgb Conc 33.2 g/dL (32-36); Mean Corpuscular Volume 86.6 fL (80-100); Mean Platelet Volume 10.1 fL (7.4-10.4); Platelet Count 148 K/uL (130-400); RDW Coefficient of Variation 13.8 % (11.5-14.5); RDW Standard Deviation 43.9 fL (36.4-46.3); Red Blood Count 4.24 M/uL (4.2-5.4); White Blood Count 4.68 K/uL (4.8-10.8)
[2021-02-21 08:14] LABS: Basophils # (auto) 0.02 K/uL (0-0.2); Basophils % (auto) 0.4 %; Eosinophils # (auto) 0.22 K/uL (0-0.5); Eosinophils % (auto) 4.7 %; Immature Granulocytes # (auto) 0.03 K/uL (0.00-0.02); Immature Granulocytes % (auto) 0.6 %; Lymphocytes # (auto) 2.75 K/uL (1.2-3.4); Lymphocytes % (auto) 58.8 %; Monocytes # (auto) 0.47 K/uL (0.11-0.59); Neutrophils # (auto) 1.19 K/uL (1.4-6.5); Neutrophils % (auto) 25.5 %
[2021-02-21 08:16] LABS: BUN Creatinine Ratio 11.8 (10-20); Calcium 7.9 mg/dl (8.5-10.1); Creatinine Clr Calc Pharmacy 81.9 ml/min; Est GFR (African American) 105.5; Magnesium 2.3 mg/dl (1.8-2.4); Potassium 3.4 mmol/L (3.5-5.1)
[2021-02-21] MEDS: PANTOprazole 40 MG TAB PO SCH (08:35)
[2021-02-21] MEDS: SERTRALINE HCL 50 MG TABLET PO SCH (08:35)
[2021-02-21] MEDS: CHOLECALCIFEROL 1,000 UNITS 25 MCG TAB PO SCH (08:35)
[2021-02-21] MEDS: CYANOCOBALAMIN 500 MCG TABLET (VITAMIN B-12) PO SCH (08:36)
[2021-02-21] MEDS: SUCRALFATE 1 GM/10 ML UDC PO SCH ×2 (08:36→15:32)
[2021-02-21] MEDS: QUEtiapine FUMARATE 25 MG TABLET PO SCH (08:36)
[2021-02-21] MEDS: DOCUSATE SODIUM/SENNA 50/8.6MG TAB PO SCH (08:37)
[2021-02-21] MEDS: LIDOCAINE 5% 1 PATCH TD SCH (08:38)
[2021-02-21] MEDS: ENOXAPARIN INJ 30 MG/0.3 ML SYR SQ SCH (08:38)
[2021-02-21] MEDS: POLYETHYLENE (MIRALAX) 17 GM PACK PO SCH (08:39)
[2021-02-21] MEDS: clonazePAM 0.5 MG TAB PO SCH (08:42)
[2021-02-21] MEDS ORDERED: MAGNESIUM OXIDE 400 MG TAB PO SCH (09:00)
[2021-02-21] MEDS ORDERED: VALPROIC ACID SOLN 250 MG/5 ML UDC PO SCH (09:00)
[2021-02-21] MEDS ORDERED: POTASSIUM CHLORIDE 10 MEQ TABCR PO STA (09:11)
--- NOTE | 2021-02-21 09:12 | Neurology Progress Note ---
Date of Service February 21, 2021 Assessment & Plan (1) Migraine without aura, intractable, with status migrainosus: Brook Johnson is a 45 yo woman w/ PMH of B12 deficiency, vitamin D deficiency, PNES, chronic migraine with aura and episodic dizziness who p/t neurology clinic for follow up headaches and PNES. # Migraine with aura: has transitioned back into a chronic migraine pattern in the last few months with current severe exacerbation/status migrainosus for the last 4 weeks. She is also COVID positive and her worsening headaches recently may be predominantly from having COVID. - Preventative treatment: continue qudexy 75mg qhs, aimoivig 70mg monthly (next dose due in February 2021), nortriptyline 25mg qhs. Work with PCP as discussed to change sertraline to venlafaxine as that can help with mood and migraine prevention. - Acute treatment: continue PO medications including diclofenac or PO depakote 500mg/PO promethazine/PO benadryl 50mg bid to tid prn. Limit diclofenac or tylenol to no more than 2-3 tabs per week to prevent rebound headaches (ok to use benadryl/promethazine/depakote as often as needed). Would hold off on further scheduled seroquel (ok to use prn). Ok to use prn haldol as well. - f/u in neurology clinic in 3 weeks Thank you for this interesting consult. Plan of care discussed with primary team. Please call or text of questions. (2) COVID-19: (3) Anxiety: (4) Pseudoseizure: Admission and Anticipated Discharge Date Admission Date: February 14, 2021 Subjective NAEs overnight. She reports that she is doing ok, just tired. Headaches are "ok", about 4/10. Review of Systems Review of Systems: 10 point review of systems completed and negative except as in HPI. Results & Data ([facility]) Vital Signs (Past 12 Hours) Vital Signs Temp Pulse Resp BP Pulse Ox 02/21/21 08:16 36.6 C 82 18 92/62 L 97 02/21/21 00:31 36.8 C 72 20 101/66 96 Exam (Neuro) Physical Exam: General Exam: GEN: NAD, tired CV: RRR PULM: Nonlabored respirations on room air. Neuro Exam: MS: Awake and Alert. Speech fluent and appropriate without dysarthria or paraphasic errors. Language intact including naming, comprehension, repetition. Attention intact. PG Care Time/CCT Total # of Minutes Spent Total Time Spent with Patient: Total time spent is greater than 50% in coordination of care (as documented) at patient's floor/unit and/or counseling patient: Coding Level of Care Code 79216 Subseq Hosp Care Lvl 3 Diagnoses Migraine without aura, intractable, with status migrainosus G43.011 COVID-19 U07.1 Anxiety F41.9 Pseudoseizure F44.5
--- NOTE | 2021-02-21 14:11 | Discharge Summary ---
Date of Service February 21, 2021 Admission HPI Per Admitting Provider 45 yo F Hx migraine headache, psychogenic non-epileptic seizures, B12 deficiency, anxiety presented to ER for 3 weeks of migraine. Follows with Dr. Keenan, whom she saw on 02/06 and at that time was started on steroid burst plus Zyprexa 2.5 mg x 5 days to try to break the migraine cycle. Was seen in our ER yesterday by Dr. Vega, at that time was started on Depakote every 8 hours. Returns today for continued severe migraine despite new treatments and PRN home medications. Was recommended by Dr. Keenan to be admitted for DHE protocol as well as serial migraine cocktails. In the ER was given 1 mg DHE IV, ketorolac 10 mg IV, NSS 1L bolus, Phenergan, Benadryl. Also incidentally noted to be COVID-19 positive. On my interview patient denies chest pain, shortness of breath, diarrhea or constipation, abdominal pain, dysuria or hematuria. Endorses severe headache and has the lights off with sunglasses on. Does not report any significant weight loss or gain over the last several months. No sick contacts, fevers, chills, URI symptoms. Does endorse brittle hair and some heat/cold intolerance. History of migraine in her mother. Principal Diagnosis Status migrainosus, Covid-19, pseudoseizure Discharge Exam Constitutional WD/WN, vitals as above Eyes + anicteric sclerae Neck trachea midline, no thyromegaly Respiratory normal respiratory effort, lungs clear to auscultation Cardiovascular RRR, no murmur, no edema Chest (Breasts) Chest: normal inspection of chest Gastrointestinal (Abdomen) normal bowel sounds, soft, nontender, no hepatosplenomegaly Musculoskeletal Extremities: extremities normal to inspection; no cyanosis and no clubbing Skin no rashes, warm and dry Neurologic moves all extremities and awake; no focal motor deficits Psychiatric Orientation: alert and oriented x 3 Eye Contact: good eye contact Speech: normal rate/rhythm/volume of speech Affect: + anxious affect Thought Process: goal directed thought process Lymphatic no lymphedema Discharge Data Allergies Allergy/AdvReac Type Severity Reaction Status Date / Time metoclopramide [From Reglan] AdvReac Mild Shakiness Verified 02/19/21 16:26 prochlorperazine AdvReac Mild Shakiness Verified 02/19/21 16:26 [From Compazine] acesulfame AdvReac Unknown Migraine Verified 02/19/21 15:37 aspartame AdvReac Unknown Migraine Verified 02/19/21 15:37 chocolate flavor AdvReac Unknown Migraine Verified 02/19/21 15:37 saccharin AdvReac Unknown Migraine Verified 02/19/21 15:37 sucralose AdvReac Unknown Migraine Verified 02/19/21 15:37 Consultations 02/13/21 19:15 ED Decision to Admit Stat 02/13/21 22:55 Consult Neurology Routine 02/14/21 18:25 Consult Psychiatry Routine 02/19/21 17:08 Consult Pain Management Routine Ordered Studies 02/13/21 19:44 MR brain wo/w con Stat MR venography head wo con Stat Chest x-ray x2 Hospital Course (1) Migraine without aura, intractable, with status migrainosus: Patient began with this current migraine episode that has been continuous since 01/21/2021. On 02/06, she saw neurology in the office and her Ajovy was discontinued and she was instead started on Aimovig. She also started nortriptyline 25 mg p.o. nightly and a methylprednisolone Dosepak x6 days along with Zyprexa 2.5 mg nightly x5 days. She was then admitted to the hospital on 02/13 after which she received 2 days of DHE protocol and then it did not help her and she could not tolerate side effects and that was discontinued. She was initially started on p.o. valproic acid which did not help and then was stopped She was also treated with IV Decadron in the hospital -She also has been treated with IV Phenergan, IV Benadryl, Seroquel 50 mg p.o. twice daily, IV Toradol, p.o. diclofenac, IV Dilaudid which worked well, verapamil x3 days which caused hypotension She was then started on IV Depakote on 02/18 x 24 hours and then converted to p.o. Depakote again Of all these medications, her headache remains anywhere from a 2-5/10 in severity, on the left side of the head behind the left eye and is associated with nausea, photophobia, phonophobia MRI of the brain with contrast on both 02/11 at an outside facility and on 02/13 at this facility are normal. MRV of the head shows a likely developmental very small left transverse sinus and left sigmoid sinus, but otherwise negative for dural venous thrombosis. TSH is normal and CBC and electrolytes are normal -All IV meds were converted to p.o. medications in an effort to facilitate discharge and she was remaining stable at a 4/10-5/10 in severity but doing okay and well enough for discharge on 02/21 She is now on the following: -Continue Seroquel 50mg BID -Continue Phenergan 25 mg p.o. every 8 hours as needed for nausea -Benadryl 50 mg p.o. every 8 hours scheduled until headache subsides -Depakote 500 mg p.o. 3 times daily oral solution -Continue nortriptyline 25 mg at bedtime -Continue Topamax XR 75 mg p.o. at bedtime - Haldol 1 mg p.o. every 8 hours as needed for nausea or migraine -Once monthly Aimovig injection -Started magnesium 40 mg p.o. once daily -Acetaminophen 1000 mg p.o. every 8 hours as needed-try to limit to no more than 3 times a week to prevent analgesia headaches -Was given 2 g of IV magnesium on 02/18, and another 1 g on 02/20 and start magnesium 400 mg p.o. once daily in the morning Overall, she is improved. There remains a large psychiatric component to her ongoing issues with headaches which are exacerbating her headaches. She plans on following up as an outpatient with her therapist. -Consulted pain management for possible occipital nerve block-discussed case with pain management [facility] who reports they will facilitate outpatient scheduling for such Discussed her care with neurology at [facility] that has a specialty headache center-they do not accept inpatient transfers to the headache center but rather one must go through a rigorous outpatient evaluation process which includes a psychiatric evaluation. She is fortunately already been seen by psychiatry both here and as an outpatient. They did recommend that she be referred to their outpatient headache center and if accepted, they could admit her for inpatient IV ketamine or IV lidocaine infusions for recalcitrant migraine. Otherwise, they did not see a need to transfer from our hospital to their regular inpatient service as they would not be able to provide anything more than what we are doing for her here. She should follow-up with Dr. Keenan of neurology here within 2 to 3 weeks and with pain management within 1 to 2 weeks. Follow-up with PCP within 1 to 2 weeks. (2) Anxiety: high levels of anxiety, gets herself extremely worked up she is tearful, depressed, hopeless some times and has panic attacks here in the hospital continue Sertraline, Klonopin 0.5mg BID PRN at home, will make it scheduled while here panic attack on 02/17, very intense, was not a pseudoseizure-occurred after she had a traumatic event watching her roommate have respiratory failure and get intubated hyperventilated but never hypoxic, HR went up to 150's, sobbing, retching, clutching her chest stating she had pain and palpitations Ativan 1mg IV push and she immediately calmed down, within 15 minutes she was talking, trying to eat and drink The psychiatric liaison was contacted, asked them to see/speak with her, psychiatry saw her here a few days ago-recommended increasing sertraline 100 mg daily but patient declined at this time -Continue sertraline 75 mg daily -I discussed her care with psychiatric nurse liaison on 02/19 who will continue to reach out to patient for support and is trying to assist patient with making outpatient appointments (3) COVID-19: first positive test was on admission she has no symptoms except loss of taste and smell, no signs of pneumonia on chest x-ray on admission and again on 02/18 her and son have it at home, mild symptoms monitor for any hypoxia, no issues -Perhaps her headaches were related to her Covid which is hopeful that they will improve as her Covid results -She can come out of quarantine on 02/23 (4) Pseudoseizure: history of such, diagnosed at [facility] epilepsy unit had an event on 02/14, lasted several minutes EEG was normal no need for imaging of brain given history d/w Dr. Prescott had another unresponsive episode 02/17 in the morning after her room mate needed to be intubated she was visibly traumatized by witnessing that happening even though the curtain was closed (5) Vitamin B12 deficiency: Continue vitamin B12 supplement (6) Vitamin D deficiency: Continue Cholecalciferol Outpatient management (7) Chest pain: Right-sided chest wall pain, tender to palpation, she thinks may be related to clenching up from her anxiety attack the day before Chest x-ray again is normal, ECG is stable from previous with nonspecific T wave changes I do not believe she has a PE or any cardiac related issue Now improving with lidocaine patch (8) Hypokalemia: Mildly low Replaced with p.o. potassium (9) Constipation: Has not moved her bowels in many days Her new medication she received on 02/06, Aimovig, has a side effect of constipation as does nortriptyline and others that she is on -Continue MiraLAX daily and can increase to twice a day at home Also started on magnesium oxide (10) DVT prophylaxis: Enoxaparin 30 mg BID Dispo-stable for discharge to home with close outpatient follow-up Total Time Total Time Spent Total Time Spent (In Minutes): 45 minutes Total Time Includes: Examination of the Patient, Discharge Planning, Medication Reconciliation and Communication With Other Providers (Neurology, pain managemen t) Discharge Plan Discharge Items Patient Disposition: Home - Self-Care Reason For Visit: STATUS MIGRAINOSUS Discharge Diagnosis: Status migrainosus Condition on Discharge: Fair Activity: As commented below Lifting: Gradually increase as tolerated Bathing: No limitations Exercise/Sports: Gradually increase as tolerated Non-emergency contact: Primary Care Provider, Neurologist and Pain Management Call non-emergency contact if: you have any medication questions, your symptoms worsen, your pain is not controlled, your pain is worsening, your pain is unusual for you and your pain is concerning for you Follow-up/Referrals: Hien Vazquez DO [Physician] - (Please schedule a follow up appointment within 1-2 weeks for Pain Management to discuss injections for your migraines ) Lesia Keenan MD [Physician] - (Please follow up within 2-3 weeks-can be a tele-health visit.) Sheila Dooley CRNP [Primary Care Provider] - (Please follow-up within 1 to 2 weeks.) Diet: Regular Addtl Attending Provider Instructions: You were admitted for an intractable migraine headache and had some improvement. You were started on multiple new medications-please follow the medication discharge list carefully. You can consider follow-up with the [facility]; you will need to call them to set up an evaluation as an outpatient if you desire. You should also follow-up with pain management who will consider doing injections for migraine headaches. Follow-up with Dr. Keenan of neurology for your migraines. Please follow also up with your primary care physician within 1 to 2 weeks. Pending Studies at Discharge: No Stand-Alone Forms: [facility] Medications and DC Order Prescriptions: New diphenhydramine HCl [Benadryl] 25 mg Capsule 50 mg PO Q8H Qty: 30 RF: 0 promethazine 25 mg Tablet 25 mg PO Q8H PRN (Reason: nausea and vomiting, migraine) Qty: 30 RF: 0 acetaminophen 500 mg Tablet 1,000 mg PO Q8 PRN (Reason: headache) Qty: 30 RF: 0 haloperidol 1 mg Tablet 1 mg PO Q8H PRN (Reason: nausea,migraine) Qty: 10 RF: 0 quetiapine 50 mg tablet 50 mg PO BID Qty: 60 RF: 0 valproic acid (as sodium salt) 500 mg/10 mL (10 mL) Solution 500 mg PO Q8H Qty: 900 RF: 0 magnesium oxide 400 mg (241.3 mg magnesium) Tablet 400 mg PO QAM Qty: 30 RF: 0 polyethylene glycol 3350 [Miralax] 17 gram Powder In Packet 17 g PO DAILY PRN (Reason: constipation) Qty: 30 RF: 0 sucralfate 100 mg/mL Suspension 1 g PO TID 10 Days Qty: 300 RF: 0 topiramate [Qudexy XR] 25 mg cap,sprinkle,ER 24hr dose pack 75 mg PO HS Qty: 90 RF: 0 Continued cholecalciferol (vitamin D3) 2,000 unit tablet 2,000 units PO DAILY RF: 0 sertraline 50 mg tablet 75 mg PO DAILY RF: 0 zolpidem 10 mg tablet 10 mg PO HS RF: 0 famotidine 20 mg tablet 20 mg PO HS RF: 0 Aimovig Autoinjector 140 mg/mL auto-injector 140 mg subcut MONTHLY Qty: 1 RF: 3 pantoprazole 40 mg tablet,delayed release (DR/EC) 40 mg PO DAILY RF: 0 sumatriptan [Imitrex] 20 mg/actuation spray,non-aerosol 20 mg INTRANASAL Q6H PRN (Reason: Migraine Headache) RF: 0 mecobalamin (vitamin B12) 1,000 mcg Tablet,Chewable 1,000 mcg PO DAILY RF: 0 clonazepam 0.5 mg tablet 0.5 mg PO BID PRN (Reason: anxiety) Qty: 0 RF: 0 Changed nortriptyline 25 mg capsule 25 mg PO HS Qty: 30 RF: 2 Discontinued topiramate 25 mg cap,sprinkle,ER 24hr dose pack 25 mg PO HS RF: 0 ketorolac 10 mg tablet 10 mg PO Q8H PRN (Reason: pain) Qty: 10 RF: 0 valproic acid 250 mg capsule 250 mg PO UD Qty: 18 RF: 0 Discharge Orders: Discharge Order (Routine); Ordered 02/21/21 Ordered By: Christa Costa Admission Data Admit Date/Time: 02/14/21 15:17 Attending Provider: Christa Costa Admit Provider: Gretchen hSaffer Primary Care Provider: Sheila Dooley Other Providers: Barbie Selby ; Jay Prescott ; Trinity Pettit ; Jer Barber Coding Level of Care Code D/C Day Management >30 mins Diagnoses Migraine without aura, intractable, with status migrainosus G43.011 Anxiety F41.9 COVID-19 U07.1 Pseudoseizure F44.5 Vitamin B12 deficiency E53.8 Vitamin D deficiency E55.9 Chest pain R07.9 Hypokalemia E87.6 Constipation K59.00 DVT prophylaxis Z29.9
== END 2021-02-21 16:30 | disposition home or self-care (01) | DRG 102 ==
LOC: ED 16:19 → 2N 16:19 → SUATTDRO 19:44 → 2N 21:13 → SUATTDRO 02-14 15:17